=== PATIENT | male | born 1955 | race African-American/Black ===

== ENCOUNTER 2018-04-14 11:31 | Emergency (ER) | payer OTHER, SELFPAY ==
[2018-04-14 11:44] VITALS: BP 139/83; PULSE 78; RESP 20; TEMP 36.8; O2SAT 100; BMI 30.1
--- NOTE | 2018-04-14 13:11 | ED.MALEGU ---
HPI - Male Genitourinary <KIKI Pretty - Last Filed: 04/14/18 22:45> General Chief complaint: Urogenital-Male Stated complaint: post scrotal surgery-needs wick removed Time Seen by Provider: 04/14/18 12:44 Source: patient Mode of arrival: ambulatory Limitations: no limitations History of Present Illness HPI Narrative: Patient presents with chief complaint of needing a wick removed from an incision on his scrotum. States that he had a cyst removed a few days ago and the instructed him to follow up with his primary care provider or the emergency department to have the wick removed. Denies fevers, nausea vomiting or diarrhea. States he is taking antibiotics twice a day. Patient later remembers he had an abscess on his scrotum rather than a cyst. States overall he feels well. Related Data Home Medications Medication Instructions Recorded Confirmed famotidine [Pepcid] 1 tab PO PRN PRN 04/14/18 04/14/18 polyethylene glycol 3350 [Miralax] 1 dose PO PRN PRN 04/14/18 04/14/18 sulfamethoxazole-trimethoprim 1 tab PO BID 04/14/18 04/14/18 tramadol 50 mg PO Q6H PRN 04/14/18 04/14/18 Review of Systems <KIKI Pretty - Last Filed: 04/14/18 22:45> Review of Systems GENERAL: Denies chills, fatigue, malaise, fever, sweats. HEENT: Denies sinus pain, ear pain, sore throat, difficulty swallowing, dizziness. RESPIRATORY: Denies dyspnea, cough, wheezing, hemoptysis, sputum. CARDIOVASCULAR: Denies chest pain, palpitations, orthopnea, edema, GASTROINTESTINAL: Denies nausea, vomiting, abdominal pain, diarrhea, constipation, melena. : See HPI MUSCULOSKELETAL: denies weakness, joint pain, or bony pain SKIN: Denies rash, skin lesions, or other NEUROLOGIC: Denies weakness, headache, numbness, change in speech, confusion, seizures, incoordination. PSYCHIATRIC: No concerning psychosocial issues. 12 point review of systems is negative except for those stated above Exam <KIKI Pretty - Last Filed: 04/14/18 22:45> Narrative Exam Narrative: GENERAL: This is a well-nourished, well-developed patient, lying in bed HEAD: Atraumatic. Normocephalic. No temporal or scalp tenderness. EYES: Pupils equal round and reactive. Extraocular motions intact. No scleral icterus. No injection or drainage. ENT: Nose without bleeding, purulent drainage or septal hematoma. Throat without erythema, tonsillar hypertrophy or exudate. Uvula midline. Airway patent. NECK: Trachea midline. No JVD or lymphadenopathy. Supple, nontender, no meningeal signs. CARDIOVASCULAR: Regular rate and rhythm without murmurs, gallops, or rubs. RESPIRATORY: Clear to auscultation. Breath sounds equal bilaterally. No wheezes, rales, or rhonchi. GASTROINTESTINAL: Abdomen soft, non-tender, nondistended. No hepato-splenomegaly, or palpable masses. No guarding. EXTREMITIES: No clubbing, cyanosis, or edema. No joint tenderness, effusion, or edema noted. BACK: Nontender without deformity or crepitance. No flank tenderness. NEURO: AOx3. SKIN: Incision and drainage wound noted on left side of scrotum. Approximately 4 cm of packing was removed. No drainage noted, no erythema no swelling noted. Initial Vital Signs Initial Vital Signs: Vital Signs Temperature 98.2 F 04/14/18 11:44 Pulse Rate 78 04/14/18 11:44 Respiratory Rate 20 04/14/18 11:44 Blood Pressure 139/83 H 04/14/18 11:44 Pulse Oximetry 100 04/14/18 11:44 <David Mejia DO - Last Filed: 04/15/18 07:21> Initial Vital Signs Initial Vital Signs: Vital Signs Temperature 98.2 F 04/14/18 11:44 Pulse Rate 78 04/14/18 11:44 Respiratory Rate 20 04/14/18 11:44 Blood Pressure 139/83 H 04/14/18 11:44 Pulse Oximetry 100 04/14/18 11:44 Course <KIKI Pretty - Last Filed: 04/14/18 22:45> Additional Information: Patient presented for having wick removed from incision and drainage site on scrotum. Records were obtained from [facility] emergency department. Patient's urine sample sent. The packing was removed with Mindy STANTON as pinner printed circuit boards. Discussed monitoring for signs and symptoms of worsening infection, continue taking antibiotics as discussed. Orders Ordered: ED Orders 04/14/18 13:09 Urinalysis and Microscopic Stat Vital Signs - 8 hr 04/14/18 11:44 Temperature 98.2 F Pulse Rate 78 Respiratory Rate 20 Blood Pressure 139/83 H Pulse Oximetry 100 <David Mejia DO - Last Filed: 04/15/18 07:21> Orders Ordered: ED Orders 04/14/18 13:09 Urinalysis and Microscopic Stat Vital Signs - 8 hr 04/14/18 11:44 Temperature 98.2 F Pulse Rate 78 Respiratory Rate 20 Blood Pressure 139/83 H Pulse Oximetry 100 MDM - Male Genitourinary <ELHAM Pretty-BC - Last Filed: 04/14/18 22:45> Lab Data Lab Results 04/14/18 Range/Units 13:10 Urine Color Yellow Urine Appearance Clear Urine pH 7.0 (4.5-8.0) Ur Specific [place] 1.020 (1.000-1.035) Urine Protein Negative (Negative) Urine Glucose (UA) Negative (Normal) g/dL Urine Ketones Negative (NEGATIVE) Urine Occult Blood Trace-intact (Negative) Urine Nitrate Negative (Negative) Urine Bilirubin Negative (NEGATIVE) Urine Urobilinogen 0.2 (0.2) E.U./dL Ur Leukocyte Esterase Negative (NEGATIVE) Urine RBC 1-5/hpf (0-5/HPF) Urine WBC 0-1/hpf (0-5/HPF) Ur Squamous Epith Cells 0-1 /hpf Urine Bacteria None seen (None) Ur Culture Indicated? Cult not indicated Micro UA Comment Not Reportable MDM Narrative Medical decision making narrative: Patient presents for wound management. Packing was removed as discussed. Patient has no signs and symptoms of further infection, is afebrile and has no pain. The sinus tract in to keep taking his antibiotics as directed by the other emergency department. Discussed follow-up if worsening or no improvement including discharge, fevers, acute concerns. Patient had no questions or concerns upon discharge. <David Mejia DO - Last Filed: 04/15/18 07:21> Lab Data Lab Results 04/14/18 Range/Units 13:10 Urine Color Yellow Urine Appearance Clear Urine pH 7.0 (4.5-8.0) Ur Specific [place] 1.020 (1.000-1.035) Urine Protein Negative (Negative) Urine Glucose (UA) Negative (Normal) g/dL Urine Ketones Negative (NEGATIVE) Urine Occult Blood Trace-intact (Negative) Urine Nitrate Negative (Negative) Urine Bilirubin Negative (NEGATIVE) Urine Urobilinogen 0.2 (0.2) E.U./dL Ur Leukocyte Esterase Negative (NEGATIVE) Urine RBC 1-5/hpf (0-5/HPF) Urine WBC 0-1/hpf (0-5/HPF) Ur Squamous Epith Cells 0-1 /hpf Urine Bacteria None seen (None) Ur Culture Indicated? Cult not indicated Micro UA Comment Not Reportable Discharge Plan Departure Patient Disposition: Home, Self-Care Clinical Impression: Abscess Discharge Date/Time: 04/14/18 13:57 Interventions: ED Discharge Assessment Last Done: 04/14/18 13:53 Instructions: DI for Incision and Drainage of a Skin Abscess Activity Restrictions/Additional Instructions: Today I removed the packing from your abscess. Monitor for fever, spreading abscess, redness and drainage. Follow up with primary care if worsening or new symptoms. Keep taking the antibiotic as given to at the other emergency department. Prescriptions: No Action sulfamethoxazole-trimethoprim 800-160 mg tablet 1 tab PO BID RF: 0 tramadol 50 mg tablet 50 mg PO Q6H PRN (Reason: Pain, Moderate) RF: 0 polyethylene glycol 3350 [Miralax] 17 gram Powder In Packet 1 dose PO PRN PRN (Reason: Constipation) RF: 0 famotidine [Pepcid] 20 mg Tablet 1 tab PO PRN PRN (Reason: Heartburn) RF: 0 Stand Alone Forms: Against Medical Advice <David Mejia DO - Last Filed: 04/15/18 07:21> Cosign ED Attending Martature Attestation: I was available for consultation during this patient's emergency department encounter
[2018-04-14 13:22] LABS: Bacteria Urine None Seen
[2018-04-14 13:25] LABS: Appearance Urine UA CLEAR; Bilirubin Urine UA NEGATIVE (NEGATIVE); Color Urine UA YELLOW; Glucose Urine UA NEGATIVE (Normal); Ketones Urine UA NEGATIVE (NEGATIVE); Leukocyte Esterase Urine UA NEGATIVE (NEGATIVE); Nitrite Urine UA Negative (Negative); Occult Blood Urine UA TRACE-INTACT (Negative); Protein Urine UA NEGATIVE (Negative); Urobilinogen Urine UA 0.2 E.U./dL (0.2)
[2018-04-14 13:33] LABS: Culture Indicated Urine Cult Not Indicated; RBC Urine 1-5/HPF (0-5/HPF); Squamous Epithelial Cell Urine 0-1 /HPF; WBC Urine 0-1/HPF (0-5/HPF)
[2018-04-14 13:49] VITALS: BP 136/88; PULSE 72; RESP 17; O2SAT 100
--- NOTE | 2018-04-14 22:45 | ED_ITS ---
HPI - Male Genitourinary <KIKI Pretty - Last Filed: 04/14/18 22:45> General Chief complaint: Urogenital-Male Stated complaint: post scrotal surgery-needs wick removed Time Seen by Provider: 04/14/18 12:44 Source: patient Mode of arrival: ambulatory Limitations: no limitations History of Present Illness HPI Narrative: Patient presents with chief complaint of needing a wick removed from an incision on his scrotum. States that he had a cyst removed a few days ago and the instructed him to follow up with his primary care provider or the emergency department to have the wick removed. Denies fevers, nausea vomiting or diarrhea. States he is taking antibiotics twice a day. Patient later remembers he had an abscess on his scrotum rather than a cyst. States overall he feels well. Related Data Home Medications Medication Instructions Recorded Confirmed famotidine [Pepcid] 1 tab PO PRN PRN 04/14/18 04/14/18 polyethylene glycol 3350 [Miralax] 1 dose PO PRN PRN 04/14/18 04/14/18 sulfamethoxazole-trimethoprim 1 tab PO BID 04/14/18 04/14/18 tramadol 50 mg PO Q6H PRN 04/14/18 04/14/18 Review of Systems <KIKI Pretty - Last Filed: 04/14/18 22:45> Review of Systems GENERAL: Denies chills, fatigue, malaise, fever, sweats. HEENT: Denies sinus pain, ear pain, sore throat, difficulty swallowing, dizziness. RESPIRATORY: Denies dyspnea, cough, wheezing, hemoptysis, sputum. CARDIOVASCULAR: Denies chest pain, palpitations, orthopnea, edema, GASTROINTESTINAL: Denies nausea, vomiting, abdominal pain, diarrhea, constipation, melena. : See HPI MUSCULOSKELETAL: denies weakness, joint pain, or bony pain SKIN: Denies rash, skin lesions, or other NEUROLOGIC: Denies weakness, headache, numbness, change in speech, confusion, seizures, incoordination. PSYCHIATRIC: No concerning psychosocial issues. 12 point review of systems is negative except for those stated above Exam <KIKI Pretty - Last Filed: 04/14/18 22:45> Narrative Exam Narrative: GENERAL: This is a well-nourished, well-developed patient, lying in bed HEAD: Atraumatic. Normocephalic. No temporal or scalp tenderness. EYES: Pupils equal round and reactive. Extraocular motions intact. No scleral icterus. No injection or drainage. ENT: Nose without bleeding, purulent drainage or septal hematoma. Throat without erythema, tonsillar hypertrophy or exudate. Uvula midline. Airway patent. NECK: Trachea midline. No JVD or lymphadenopathy. Supple, nontender, no meningeal signs. CARDIOVASCULAR: Regular rate and rhythm without murmurs, gallops, or rubs. RESPIRATORY: Clear to auscultation. Breath sounds equal bilaterally. No wheezes , rales, or rhonchi. GASTROINTESTINAL: Abdomen soft, non-tender, nondistended. No hepato-splenomegaly , or palpable masses. No guarding. EXTREMITIES: No clubbing, cyanosis, or edema. No joint tenderness, effusion, or edema noted. BACK: Nontender without deformity or crepitance. No flank tenderness. NEURO: AOx3. SKIN: Incision and drainage wound noted on left side of scrotum. Approximately 4 cm of packing was removed. No drainage noted, no erythema no swelling noted. Initial Vital Signs Initial Vital Signs: Vital Signs Temperature 98.2 F 04/14/18 11:44 Pulse Rate 78 04/14/18 11:44 Respiratory Rate 20 04/14/18 11:44 Blood Pressure 139/83 H 04/14/18 11:44 Pulse Oximetry 100 04/14/18 11:44 <David Mejia DO - Last Filed: 04/15/18 07:21> Initial Vital Signs Initial Vital Signs: Vital Signs Temperature 98.2 F 04/14/18 11:44 Pulse Rate 78 04/14/18 11:44 Respiratory Rate 20 04/14/18 11:44 Blood Pressure 139/83 H 04/14/18 11:44 Pulse Oximetry 100 04/14/18 11:44 Course <KIKI Pretty - Last Filed: 04/14/18 22:45> Additional Information: Patient presented for having wick removed from incision and drainage site on scrotum. Records were obtained from [facility] emergency department. Patient's urine sample sent. The packing was removed with Mindy STANTON as skilled nursing professional. Discussed monitoring for signs and symptoms of worsening infection, continue taking antibiotics as discussed. Orders Ordered: ED Orders 04/14/18 13:09 Urinalysis and Microscopic Stat Vital Signs - 8 hr 04/14/18 11:44 Temperature 98.2 F Pulse Rate 78 Respiratory Rate 20 Blood Pressure 139/83 H Pulse Oximetry 100 <David Mejia DO - Last Filed: 04/15/18 07:21> Orders Ordered: ED Orders 04/14/18 13:09 Urinalysis and Microscopic Stat Vital Signs - 8 hr 04/14/18 11:44 Temperature 98.2 F Pulse Rate 78 Respiratory Rate 20 Blood Pressure 139/83 H Pulse Oximetry 100 MDM - Male Genitourinary <ELHAM Pretty-BC - Last Filed: 04/14/18 22:45> Lab Data Lab Results 04/14/18 Range/Units 13:10 Urine Color Yellow Urine Appearance Clear Urine pH 7.0 (4.5-8.0) Ur Specific [place] 1.020 (1.000-1.035) Urine Protein Negative (Negative) Urine Glucose (UA) Negative (Normal) g/dL Urine Ketones Negative (NEGATIVE) Urine Occult Blood Trace-intact (Negative) Urine Nitrate Negative (Negative) Urine Bilirubin Negative (NEGATIVE) Urine Urobilinogen 0.2 (0.2) E.U./dL Ur Leukocyte Esterase Negative (NEGATIVE) Urine RBC 1-5/hpf (0-5/HPF) Urine WBC 0-1/hpf (0-5/HPF) Ur Squamous Epith Cells 0-1 /hpf Urine Bacteria None seen (None) Ur Culture Indicated? Cult not indicated Micro UA Comment Not Reportable MDM Narrative Medical decision making narrative: Patient presents for wound management. Packing was removed as discussed. Patient has no signs and symptoms of further infection, is afebrile and has no pain. The sinus tract in to keep taking his antibiotics as directed by the other emergency department. Discussed follow-up if worsening or no improvement including discharge, fevers, acute concerns. Patient had no questions or concerns upon discharge. <David Mejia DO - Last Filed: 04/15/18 07:21> Lab Data Lab Results 04/14/18 Range/Units 13:10 Urine Color Yellow Urine Appearance Clear Urine pH 7.0 (4.5-8.0) Ur Specific [place] 1.020 (1.000-1.035) Urine Protein Negative (Negative) Urine Glucose (UA) Negative (Normal) g/dL Urine Ketones Negative (NEGATIVE) Urine Occult Blood Trace-intact (Negative) Urine Nitrate Negative (Negative) Urine Bilirubin Negative (NEGATIVE) Urine Urobilinogen 0.2 (0.2) E.U./dL Ur Leukocyte Esterase Negative (NEGATIVE) Urine RBC 1-5/hpf (0-5/HPF) Urine WBC 0-1/hpf (0-5/HPF) Ur Squamous Epith Cells 0-1 /hpf Urine Bacteria None seen (None) Ur Culture Indicated? Cult not indicated Micro UA Comment Not Reportable Discharge Plan Departure Patient Disposition: Home, Self-Care Clinical Impression: Abscess Discharge Date/Time: 04/14/18 13:57 Interventions: ED Discharge Assessment Last Done: 04/14/18 13:53 Instructions: DI for Incision and Drainage of a Skin Abscess Activity Restrictions/Additional Instructions: Today I removed the packing from your abscess. Monitor for fever, spreading abscess, redness and drainage. Follow up with primary care if worsening or new symptoms. Keep taking the antibiotic as given to at the other emergency department. Prescriptions: No Action sulfamethoxazole-trimethoprim 800-160 mg tablet 1 tab PO BID RF: 0 tramadol 50 mg tablet 50 mg PO Q6H PRN (Reason: Pain, Moderate) RF: 0 polyethylene glycol 3350 [Miralax] 17 gram Powder In Packet 1 dose PO PRN PRN (Reason: Constipation) RF: 0 famotidine [Pepcid] 20 mg Tablet 1 tab PO PRN PRN (Reason: Heartburn) RF: 0 Stand Alone Forms: Against Medical Advice <David Mejia DO - Last Filed: 04/15/18 07:21> Cosign ED Attending Martature Attestation: I was available for consultation during this patient's emergency department encounter
== END 2018-04-14 13:57 | disposition home or self-care (01) ==
PROVIDERS: Emergency Provider Nurse Practitioner Family
DX: Z48.00 Encounter for change or removal of nonsurgical wound dressing (principal)
CPT/HCPCS: 81001; 81003; 99283

== ENCOUNTER 2018-10-21 19:36 | Emergency (ER) | payer OTHER, SELFPAY ==
[2018-10-21 19:54] VITALS: BP 138/81; PULSE 78; RESP 15; TEMP 37.2; O2SAT 99; BMI 31.0
[2018-10-21 21:42] LABS: Alanine Aminotransferase 24 IU/L (21-72); Albumin 4.5 g/dL (3.5-5.0); Albumin Globulin Ratio 1.3 (1.0-2.8); Alkaline Phosphatase 71 U/L (38-126); Aspartate Aminotransferase 27 IU/L (17-59); Bilirubin Total 0.3 mg/dL (0.2-1.3); Blood Urea Nitrogen 14 mg/dL (9-20); Calcium 9.5 mg/dL (8.4-10.2); Carbon Dioxide 26 mmol/L (22-32); Chloride 105 mmol/L (98-107); Estimated Glomerular Filt Rate > 60.0 mL/min (>60); Globulin 3.5 g/dL (1.7-4.1); Glucose 92 mg/dL (80-110); HEMOLYSIS 16 (0-50); Lipase 73 U/L (23-300); Sodium 141 mmol/L (137-145)
[2018-10-21 21:48] LABS: Add Manual Diff / Slide Review NO; Basophils Absolute Auto 0 /uL (0-100); Basophils Percent Auto 0.9 % (0-2); Eosinophils Absolute Auto 200 /uL (0-450); Eosinophils Percent Auto 2.9 % (2-4); Hematocrit 38.7 % (41-53); Hemoglobin 12.9 g/dL (13.5-17.5); Lymphocytes Absolute Auto 2200 /uL (1100-4500); Lymphocytes Percent Auto 38.2 % (25-40); Mean Corpuscular HGB Conc 33.2 % (30-36); Mean Corpuscular Hemoglobin 31.6 PG (26-34); Mean Corpuscular Volume 95.2 fL (80-100); Monocytes Absolute Auto 400 /uL (0-900); Monocytes Percent Auto 7.5 % (3-14); Neutrophils Absolute Auto 2900 /uL (1500-7000); Neutrophils Percent Auto 50.5 % (50-75); Platelet Count 182 X10^3/uL (150-400); Red Blood Cell Count 4.06 X10^6/uL (4.5-5.9); White Blood Cell Count 5.7 X10^3/uL (4.5-11.0)
--- NOTE | 2018-10-21 22:27 | ED.ABDPAIN ---
HPI - Abdominal Pain General Chief Complaint: Abdominal Pain Stated Complaint: PAIN LEFT SIDE ABD PAIN Time Seen by Provider: 10/21/18 22:03 Source: patient and family Mode of arrival: ambulatory Limitations: no limitations History of Present Illness HPI narrative: 63-year-old male smoker with minimal medical history presents with a chief complaint of severe left flank pain that starts in his back and wraps around his groin. He has had this pain intermittently over the past year but it became significantly worse over the past few hours. He states that the pain is moving and is not made worse by any motion, though he cannot find a position of comfort. He denies any nausea, vomiting or diarrhea. He denies fever or chills. He denies any injury MD complaint: flank pain Onset (ago): year(s) Pain Consistency: intermittent Location: L flank Severity: moderate Quality: stabbing and sharp Migration to: LLQ Relieving factors: nothing Exacerbating factors: nothing Associated symptoms: denies other symptoms Related Data Home Medications Medication Instructions Recorded Confirmed famotidine [Pepcid] 1 tab PO PRN PRN 04/14/18 04/14/18 polyethylene glycol 3350 [Miralax] 1 dose PO PRN PRN 04/14/18 04/14/18 sulfamethoxazole-trimethoprim 1 tab PO BID 04/14/18 04/14/18 tramadol 50 mg PO Q6H PRN 04/14/18 04/14/18 Previous Rx's Medication Instructions Recorded hydrocodone-acetaminophen 1 tab PO Q4-6H PRN #10 tab 10/22/18 ketorolac 10 mg PO Q6H PRN #14 tab 10/22/18 ondansetron 4 mg PO TID-QID PRN #10 tab 10/22/18 Allergies Allergy/AdvReac Type Severity Reaction Status Date / Time No Known Drug Allergies Allergy Verified 10/21/18 19:54 Review of Systems Constitutional Denies chills, Denies fever(s), Denies lethargy and Denies weakness Eyes Denies change in vision, Denies eye discharge, Denies irritation and Denies loss of vision ENT Ears, Nose, Mouth, and Throat: Denies change in voice, Denies neck pain and Denies sore throat Cardiovascular Denies chest pain, Denies irregular heart rhythm, Denies lightheadedness, Denies palpitations, Denies dyspnea, Denies dyspnea on exertion and Denies orthopnea Respiratory Denies cough, Denies dyspnea, Denies dyspnea on exertion and Denies wheezing Gastrointestinal Gastrointestinal: Denies abdominal pain, Denies change in bowel habits, Denies diarrhea, Denies nausea and Denies vomiting Genitourinary Denies hematuria, Reports flank pain, Denies urinary incontinence and Denies urinary urgency Musculoskeletal Denies neck pain Integumentary/Breasts Denies pruritus, Denies erythema, Denies rash and Denies wounds Neurologic Denies confusion, Denies loss of vision and Denies weakness Psychiatric Denies anxiety, Denies confusion, Denies depression, Denies homicidal ideation and Denies suicidal ideation Endocrine Denies palpitations Hematologic/Lymphatic Denies easy bruising Allergic/Immunologic Denies wheezing PFSH Social History Smoking Status: Current some day smoker Social History Smoking Status: Current some day smoker Exam Narrative Exam Narrative: GENERAL: This is a well-nourished, well-developed patient, in mild distress. Rubbing his left flank HEAD: Atraumatic. Normocephalic. No temporal or scalp tenderness. EYES: Pupils equal round and reactive. Extraocular motions intact. No scleral icterus. No injection or drainage. ENT: Nose without bleeding, purulent drainage or septal hematoma. Throat without erythema, tonsillar hypertrophy or exudate. Uvula midline. Airway patent. NECK: Trachea midline. No JVD or lymphadenopathy. Supple, nontender, no meningeal signs. CARDIOVASCULAR: Regular rate and rhythm without murmurs, gallops, or rubs. RESPIRATORY: Clear to auscultation. Breath sounds equal bilaterally. No wheezes, rales, or rhonchi. GASTROINTESTINAL: Abdomen soft, non-tender, nondistended. No hepato-splenomegaly, or palpable masses. No guarding. EXTREMITIES: No clubbing, cyanosis, or edema. No joint tenderness, effusion, or edema noted. BACK: Nontender without deformity or crepitance. No flank tenderness. NEURO: AOx3. SKIN: No rash or erythema. Initial Vital Signs Initial Vital Signs: Vital Signs Temperature 98.9 F 10/21/18 19:54 Pulse Rate 78 10/21/18 19:54 Respiratory Rate 15 10/21/18 19:54 Blood Pressure 138/81 10/21/18 19:54 Pulse Oximetry 99 10/21/18 19:54 Course Orders Ordered: Discontinued Medications Hydrocodone Bitart/Acetaminophen (Vicodin Prepack) 1 bottle MISC SEEINSTR ONE Stop: 10/22/18 01:13 Last Admin: 10/22/18 01:16 Dose: 1 bottle Ketorolac Tromethamine (Toradol) 15 mg IV NOW ONE Stop: 10/21/18 22:27 Last Admin: 10/21/18 22:42 Dose: 15 mg Reevaluation(s) Reevaluation #1: Patient notes significant improvement with the above-stated therapies and is wishing to be discharged Vital Signs - 8 hr 10/21/18 19:54 Temperature 98.9 F Pulse Rate 78 Respiratory Rate 15 Blood Pressure 138/81 Pulse Oximetry 99 MDM - Abdominal Pain Differential Diagnosis Differential diagnosis: Likely abdominal pain, calculus of kidney, constipation, diverticulitis, gastroenteritis, pancreatitis and small bowel obstruction Lab Data Result diagrams: 10/21/18 21:20 10/21/18 21:20 Lab Results 10/21/18 10/21/18 Range/Units 21:20 21:20 WBC 5.7 (4.5-11.0) X10^3/uL RBC 4.06 L (4.5-5.9) X10^6/uL Hgb 12.9 L (13.5-17.5) g/dL Hct 38.7 L (41-53) % MCV 95.2 (80-100) fL MCH 31.6 (26-34) PG MCHC 33.2 (30-36) % RDW 14.0 (11.6-14.8) % Plt Count 182 (150-400) X10^3/uL Neut % (Auto) 50.5 (50-75) % Lymph % (Auto) 38.2 (25-40) % [place] % (Auto) 7.5 (3-14) % Eos % (Auto) 2.9 (2-4) % Baso % (Auto) 0.9 (0-2) % Neut # (Auto) 2900 (2435-3325) /uL Lymph # (Auto) 2200 (2278-1961) /uL [place] # (Auto) 400 (0-900) /uL Eos # (Auto) 200 (0-450) /uL Baso # (Auto) 0 (0-100) /uL Sodium 141 (137-145) mmol/L Potassium 4.0 (3.4-5.1) mmol/L Chloride 105 (98-107) mmol/L Carbon Dioxide 26 (22-32) mmol/L BUN 14 (9-20) mg/dL Creatinine 1.00 (0.66-1.25) mg/dL Estimated GFR > 60.0 (>60) mL/min BUN/Creatinine Ratio 14.0 (6-22) Glucose 92 (80-110) mg/dL Calcium 9.5 (8.4-10.2) mg/dL Total Bilirubin 0.3 (0.2-1.3) mg/dL AST 27 (17-59) IU/L ALT 24 (21-72) IU/L Alkaline Phosphatase 71 (38-126) U/L Total Protein 8.0 (6.3-8.2) g/dL Albumin 4.5 (3.5-5.0) g/dL Globulin 3.5 (1.7-4.1) g/dL Albumin/Globulin Ratio 1.3 (1.0-2.8) Lipase 73 (23-300) U/L Point of care testing: Urine Dip Bedside Urine Glucose Negative Bedside Urine Bilirubin - Negative Bedside Urine Ketone - Negative Urine Specific [place] 1.025 Bedside Urine Occult Blood ++ Bedside Urine pH 6.0 Bedside Urine Protein - Negative Bedside Urine Urobilinogen - Negative Bedside Urine Nitrite - Negative Bedside Urine Leukocytes - Negative Esterase Imaging Data CT scan - abdomen: Radiologist's impression: [address] [address] [address] Scan Report Signed Patient: Crescencio Hoang R#: [id number] : 8Acct:[id number] Age/Sex: 63 / MDate of Service: 10/21/18 Loc: ED Accession Number: [id number] Procedure: CT kidney ureter bladder (KUB) Ordering Provider: Travis Basilio D.O. PROCEDURE: CT KIDNEY URETER BLADDER (KUB) INDICATIONS: Left flank pain, hematuria TECHNIQUE: Noncontrast 5 mm thick sections acquired from the diaphragms to the symphysis. 5 mm thick coronal and sagittal reformats were then performed. For radiation dose reduction, the following was used: automated exposure control, adjustment of mA and/or kV according to patient size. COMPARISON: None. FINDINGS: Image quality: Excellent. Lung bases: Lung bases are clear. Heart size is normal. Urinary system: Both kidneys are normal in size. No kidney stones. No hydronephrosis or perinephric fat stranding. Both ureters appear non-dilated throughout their expected courses. Bladder wall thickness is normal; no calcified bladder stones. Other solid organs: Liver is normal in size. Gallbladder is within normal limits. Pancreas is normal in contours. Spleen is normal in size. No adrenal nodules. Peritoneum and bowel: Unenhanced bowel loops demonstrate normal wall thickness and caliber. Normal appendix. No free fluid or air. Nodes and vessels: No retroperitoneal or mesenteric adenopathy by size criteria. Aorta and inferior vena cava are normal in caliber. Abdominal wall: No ventral hernias. Pelvis: No free pelvic fluid. No inguinal hernias or adenopathy. Bones: No suspicious bony lesions. No vertebral body compression fractures. IMPRESSION: 1. No evidence of urinary tract calcification nor obstruction. 2. Normal appendix. Dictated by: Ladi Pace M.D. on 10/22/2018 at 9:28 MDM Narrative Medical decision making narrative: Multiple etiologies for patient's symptoms considered including: [bowel obstruction, but thought less likely given lack of imaging findings. Shingles, thought less likely given no rash or reproduced pain. Kidney stone thought likely given hematuria, radiation, and unprovoked pain. Vascular abnormality thought less likely given lack of suggestive findings on CT (no IV contrast used as this is low on differential)] Patient's symptoms improved or duration of stay with above-stated therapies. Findings and discharge diagnosis discussed with patient/family followed by verbalization of understanding Return precautions discussed with patient/family whom verbalize understanding. Discharge Plan Departure Patient Disposition: Home Clinical Impression: Acute flank pain, Kidney calculi Discharge Date/Time: 10/22/18 01:16 Interventions: ED Discharge Assessment Last Done: 10/22/18 01:16 Instructions: DI for Kidney Stones Activity Restrictions/Additional Instructions: *You have been diagnosed with [ acute left flank pain, likely kidney stone versus renal colic ] *What to do: *Take medications as directed *Follow up with your primary care provider in 2-3 days, call for an appointment. Let them know you were seen in the Emergency Department and that we ask that you be seen in follow up *Return to ER if you should have any new, worsening or concerning symptoms Prescriptions: New hydrocodone-acetaminophen 5-325 mg tablet 1 tab PO Q4-6H PRN (Reason: pain) Qty: 10 RF: 0 ketorolac 10 mg tablet 10 mg PO Q6H PRN (Reason: pain) Qty: 14 RF: 0 ondansetron 4 mg tablet,disintegrating 4 mg PO TID-QID PRN (Reason: nausea and vomiting) Qty: 10 RF: 0 No Action sulfamethoxazole-trimethoprim 800-160 mg tablet 1 tab PO BID RF: 0 tramadol 50 mg tablet 50 mg PO Q6H PRN (Reason: Pain, Moderate) RF: 0 polyethylene glycol 3350 [Miralax] 17 gram Powder In Packet 1 dose PO PRN PRN (Reason: Constipation) RF: 0 famotidine [Pepcid] 20 mg Tablet 1 tab PO PRN PRN (Reason: Heartburn) RF: 0
[2018-10-21] MEDS: KETOROLAC 60 MG/2 ML VIAL 15 MG IV (22:42)
[2018-10-21 23:03] VITALS: BP 129/76; PULSE 65; RESP 16; O2SAT 98
[2018-10-22 00:16] VITALS: BP 123/68; PULSE 69; RESP 18; O2SAT 97
[2018-10-22] MEDS: HYDROCODONE/ACET 5/325 PREPACK 1 BOTTLE MISC (01:16)
--- NOTE | 2018-10-23 23:52 | ED_ITS ---
HPI - Abdominal Pain General Chief Complaint: Abdominal Pain Stated Complaint: PAIN LEFT SIDE ABD PAIN Time Seen by Provider: 10/21/18 22:03 Source: patient and family Mode of arrival: ambulatory Limitations: no limitations History of Present Illness HPI narrative: 63-year-old male smoker with minimal medical history presents with a chief complaint of severe left flank pain that starts in his back and wraps around his groin. He has had this pain intermittently over the past year but it became significantly worse over the past few hours. He states that the pain is moving and is not made worse by any motion, though he cannot find a position of comfort. He denies any nausea, vomiting or diarrhea. He denies fever or chills. He denies any injury MD complaint: flank pain Onset (ago): year(s) Pain Consistency: intermittent Location: L flank Severity: moderate Quality: stabbing and sharp Migration to: LLQ Relieving factors: nothing Exacerbating factors: nothing Associated symptoms: denies other symptoms Related Data Home Medications Medication Instructions Recorded Confirmed famotidine [Pepcid] 1 tab PO PRN PRN 04/14/18 04/14/18 polyethylene glycol 3350 [Miralax] 1 dose PO PRN PRN 04/14/18 04/14/18 sulfamethoxazole-trimethoprim 1 tab PO BID 04/14/18 04/14/18 tramadol 50 mg PO Q6H PRN 04/14/18 04/14/18 Previous Rx's Medication Instructions Recorded hydrocodone-acetaminophen 1 tab PO Q4-6H PRN #10 tab 10/22/18 ketorolac 10 mg PO Q6H PRN #14 tab 10/22/18 ondansetron 4 mg PO TID-QID PRN #10 tab 10/22/18 Allergies Allergy/AdvReac Type Severity Reaction Status Date / Time No Known Drug Allergies Allergy Verified 10/21/18 19:54 Review of Systems Constitutional Denies chills, Denies fever(s), Denies lethargy and Denies weakness Eyes Denies change in vision, Denies eye discharge, Denies irritation and Denies loss of vision ENT Ears, Nose, Mouth, and Throat: Denies change in voice, Denies neck pain and Denies sore throat Cardiovascular Denies chest pain, Denies irregular heart rhythm, Denies lightheadedness, Denies palpitations, Denies dyspnea, Denies dyspnea on exertion and Denies orthopnea Respiratory Denies cough, Denies dyspnea, Denies dyspnea on exertion and Denies wheezing Gastrointestinal Gastrointestinal: Denies abdominal pain, Denies change in bowel habits, Denies diarrhea, Denies nausea and Denies vomiting Genitourinary Denies hematuria, Reports flank pain, Denies urinary incontinence and Denies urinary urgency Musculoskeletal Denies neck pain Integumentary/Breasts Denies pruritus, Denies erythema, Denies rash and Denies wounds Neurologic Denies confusion, Denies loss of vision and Denies weakness Psychiatric Denies anxiety, Denies confusion, Denies depression, Denies homicidal ideation and Denies suicidal ideation Endocrine Denies palpitations Hematologic/Lymphatic Denies easy bruising Allergic/Immunologic Denies wheezing PFSH Social History Smoking Status: Current some day smoker Social History Smoking Status: Current some day smoker Exam Narrative Exam Narrative: GENERAL: This is a well-nourished, well-developed patient, in mild distress. Rubbing his left flank HEAD: Atraumatic. Normocephalic. No temporal or scalp tenderness. EYES: Pupils equal round and reactive. Extraocular motions intact. No scleral icterus. No injection or drainage. ENT: Nose without bleeding, purulent drainage or septal hematoma. Throat without erythema, tonsillar hypertrophy or exudate. Uvula midline. Airway patent. NECK: Trachea midline. No JVD or lymphadenopathy. Supple, nontender, no meningeal signs. CARDIOVASCULAR: Regular rate and rhythm without murmurs, gallops, or rubs. RESPIRATORY: Clear to auscultation. Breath sounds equal bilaterally. No wheezes , rales, or rhonchi. GASTROINTESTINAL: Abdomen soft, non-tender, nondistended. No hepato-splenomegaly , or palpable masses. No guarding. EXTREMITIES: No clubbing, cyanosis, or edema. No joint tenderness, effusion, or edema noted. BACK: Nontender without deformity or crepitance. No flank tenderness. NEURO: AOx3. SKIN: No rash or erythema. Initial Vital Signs Initial Vital Signs: Vital Signs Temperature 98.9 F 10/21/18 19:54 Pulse Rate 78 10/21/18 19:54 Respiratory Rate 15 10/21/18 19:54 Blood Pressure 138/81 10/21/18 19:54 Pulse Oximetry 99 10/21/18 19:54 Course Orders Ordered: Discontinued Medications Hydrocodone Bitart/Acetaminophen (Vicodin Prepack) 1 bottle MISC SEEINSTR ONE Stop: 10/22/18 01:13 Last Admin: 10/22/18 01:16 Dose: 1 bottle Ketorolac Tromethamine (Toradol) 15 mg IV NOW ONE Stop: 10/21/18 22:27 Last Admin: 10/21/18 22:42 Dose: 15 mg Reevaluation(s) Reevaluation #1: Patient notes significant improvement with the above-stated therapies and is wishing to be discharged Vital Signs - 8 hr 10/21/18 19:54 Temperature 98.9 F Pulse Rate 78 Respiratory Rate 15 Blood Pressure 138/81 Pulse Oximetry 99 MDM - Abdominal Pain Differential Diagnosis Differential diagnosis: Likely abdominal pain, calculus of kidney, constipation , diverticulitis, gastroenteritis, pancreatitis and small bowel obstruction Lab Data Result diagrams: 10/21/18 21:20 10/21/18 21:20 Lab Results 10/21/18 10/21/18 Range/Units 21:20 21:20 WBC 5.7 (4.5-11.0) X10^3/uL RBC 4.06 L (4.5-5.9) X10^6/uL Hgb 12.9 L (13.5-17.5) g/dL Hct 38.7 L (41-53) % MCV 95.2 (80-100) fL MCH 31.6 (26-34) PG MCHC 33.2 (30-36) % RDW 14.0 (11.6-14.8) % Plt Count 182 (150-400) X10^3/uL Neut % (Auto) 50.5 (50-75) % Lymph % (Auto) 38.2 (25-40) % [place] % (Auto) 7.5 (3-14) % Eos % (Auto) 2.9 (2-4) % Baso % (Auto) 0.9 (0-2) % Neut # (Auto) 2900 (7175-4352) /uL Lymph # (Auto) 2200 (7296-0654) /uL [place] # (Auto) 400 (0-900) /uL Eos # (Auto) 200 (0-450) /uL Baso # (Auto) 0 (0-100) /uL Sodium 141 (137-145) mmol/L Potassium 4.0 (3.4-5.1) mmol/L Chloride 105 (98-107) mmol/L Carbon Dioxide 26 (22-32) mmol/L BUN 14 (9-20) mg/dL Creatinine 1.00 (0.66-1.25) mg/dL Estimated GFR > 60.0 (>60) mL/min BUN/Creatinine Ratio 14.0 (6-22) Glucose 92 (80-110) mg/dL Calcium 9.5 (8.4-10.2) mg/dL Total Bilirubin 0.3 (0.2-1.3) mg/dL AST 27 (17-59) IU/L ALT 24 (21-72) IU/L Alkaline Phosphatase 71 (38-126) U/L Total Protein 8.0 (6.3-8.2) g/dL Albumin 4.5 (3.5-5.0) g/dL Globulin 3.5 (1.7-4.1) g/dL Albumin/Globulin Ratio 1.3 (1.0-2.8) Lipase 73 (23-300) U/L Point of care testing: Urine Dip Bedside Urine Glucose Negative Bedside Urine Bilirubin - Negative Bedside Urine Ketone - Negative Urine Specific [place] 1.025 Bedside Urine Occult Blood ++ Bedside Urine pH 6.0 Bedside Urine Protein - Negative Bedside Urine Urobilinogen - Negative Bedside Urine Nitrite - Negative Bedside Urine Leukocytes - Negative Esterase Imaging Data CT scan - abdomen: Radiologist's impression: [address] [address] [address] Scan Report Signed Patient: Crescencio Hoang R#: [id number] : 8Acct:[id number] Age/Sex: 63 / MDate of Service: 10/21/18 Loc: ED Accession Number: [id number] Procedure: CT kidney ureter bladder (KUB) Ordering Provider: Travis Basilio D.O. PROCEDURE: CT KIDNEY URETER BLADDER (KUB) INDICATIONS: Left flank pain, hematuria TECHNIQUE: Noncontrast 5 mm thick sections acquired from the diaphragms to the symphysis. 5 mm thick coronal and sagittal reformats were then performed. For radiation dose reduction, the following was used: automated exposure control, adjustment of mA and/or kV according to patient size. COMPARISON: None. FINDINGS: Image quality: Excellent. Lung bases: Lung bases are clear. Heart size is normal. Urinary system: Both kidneys are normal in size. No kidney stones. No hydronephrosis or perinephric fat stranding. Both ureters appear non-dilated throughout their expected courses. Bladder wall thickness is normal; no calcified bladder stones. Other solid organs: Liver is normal in size. Gallbladder is within normal limits. Pancreas is normal in contours. Spleen is normal in size. No adrenal nodules. Peritoneum and bowel: Unenhanced bowel loops demonstrate normal wall thickness and caliber. Normal appendix. No free fluid or air. Nodes and vessels: No retroperitoneal or mesenteric adenopathy by size criteria. Aorta and inferior vena cava are normal in caliber. Abdominal wall: No ventral hernias. Pelvis: No free pelvic fluid. No inguinal hernias or adenopathy. Bones: No suspicious bony lesions. No vertebral body compression fractures. IMPRESSION: 1. No evidence of urinary tract calcification nor obstruction. 2. Normal appendix. Dictated by: Ladi Pace M.D. on 10/22/2018 at 9:28 MDM Narrative Medical decision making narrative: Multiple etiologies for patient's symptoms considered including: [bowel obstruction, but thought less likely given lack of imaging findings. Shingles, thought less likely given no rash or reproduced pain. Kidney stone thought likely given hematuria, radiation, and unprovoked pain. Vascular abnormality thought less likely given lack of suggestive findings on CT (no IV contrast used as this is low on differential)] Patient's symptoms improved or duration of stay with above-stated therapies. Findings and discharge diagnosis discussed with patient/family followed by verbalization of understanding Return precautions discussed with patient/family whom verbalize understanding. Discharge Plan Departure Patient Disposition: Home Clinical Impression: Acute flank pain, Kidney calculi Discharge Date/Time: 10/22/18 01:16 Interventions: ED Discharge Assessment Last Done: 10/22/18 01:16 Instructions: DI for Kidney Stones Activity Restrictions/Additional Instructions: *You have been diagnosed with [ acute left flank pain, likely kidney stone versus renal colic ] *What to do: *Take medications as directed *Follow up with your primary care provider in 2-3 days, call for an appointment. Let them know you were seen in the Emergency Department and that we ask that you be seen in follow up *Return to ER if you should have any new, worsening or concerning symptoms Prescriptions: New hydrocodone-acetaminophen 5-325 mg tablet 1 tab PO Q4-6H PRN (Reason: pain) Qty: 10 RF: 0 ketorolac 10 mg tablet 10 mg PO Q6H PRN (Reason: pain) Qty: 14 RF: 0 ondansetron 4 mg tablet,disintegrating 4 mg PO TID-QID PRN (Reason: nausea and vomiting) Qty: 10 RF: 0 No Action sulfamethoxazole-trimethoprim 800-160 mg tablet 1 tab PO BID RF: 0 tramadol 50 mg tablet 50 mg PO Q6H PRN (Reason: Pain, Moderate) RF: 0 polyethylene glycol 3350 [Miralax] 17 gram Powder In Packet 1 dose PO PRN PRN (Reason: Constipation) RF: 0 famotidine [Pepcid] 20 mg Tablet 1 tab PO PRN PRN (Reason: Heartburn) RF: 0
== END 2018-10-22 01:16 | disposition home or self-care (01) ==
PROVIDERS: Emergency Provider Emergency Medicine
DX: N20.0 Calculus of kidney (principal); R10.9 Unspecified abdominal pain
CPT/HCPCS: 36591; 74176; 80053; 81003; 83690; 85025; 96374; 99282; 99284; J1885

== ENCOUNTER 2023-10-07 20:16 | Inpatient (IN) | payer OTHER, SELFPAY ==
[2023-10-07] VITALS (8 sets, daily range): BP systolic 112–149; BP diastolic 67–95; PULSE 73–80; RESP 12–18; TEMP 36.8–37.2; O2SAT 97–100; BMI 26.6; BMI 26.9
--- NOTE | 2023-10-07 20:55 | ED.FALL ---
HPI - Fall General Chief Complaint: Fall Stated Complaint: fall, unable to move on his own Time Seen by Provider: 10/07/23 20:39 Source: patient and family Mode of arrival: Wheelchair History of Present Illness HPI Narrative: Patient is a 54-year-old male. Has a diagnosis of Parkinson's disease but has not taking any of his medicines in the past 2 years. He is here with family. His daughter went over to his house today after he did not answer the phone and found him lying on the ground. The patient states he had been laying on the ground for approximately 14 hours however the last time he had been seen was over 24 hours ago. He states he was trying to get up from sitting on an [place] when he fell over after losing his balance. He did not think that he hit his head. He did not think that he lost consciousness. He states he was in a position where he just could not get up. He currently only has generalized body aches and discomfort on his right side specifically his right buttock region. He has been on Parkinson's medicines in the past but stopped taking them approximately 2 years ago. His family was unaware this. He does not have a primary care doctor. He takes no other medications. At baseline he is able to get around the house but has a lot of difficulty doing this. He states that he probably should use a walker but does not. His family agrees that he has had significant mobility issues. Related Data Home Medications Medication Instructions Recorded Confirmed famotidine 20 mg tablet (Pepcid) 1 tab PO PRN PRN Heartburn 04/14/18 04/14/18 polyethylene glycol 3350 17 gram 1 dose PO PRN PRN Constipation 04/14/18 04/14/18 oral powder packet (Miralax) sulfamethoxazole 800 1 tab PO BID 04/14/18 04/14/18 mg-trimethoprim 160 mg tablet tramadol 50 mg tablet 50 mg PO Q6H PRN Pain, Moderate 04/14/18 04/14/18 Previous Rx's Medication Instructions Recorded hydrocodone 5 mg-acetaminophen 325 1 tab PO Q4-6H PRN pain #10 tabs 10/22/18 mg tablet ketorolac 10 mg tablet 10 mg PO Q6H PRN pain #14 tabs 10/22/18 ondansetron 4 mg disintegrating 4 mg PO TID-QID PRN nausea and 10/22/18 tablet vomiting #10 tabs Allergies Allergy/AdvReac Type Severity Reaction Status Date / Time No Known Drug Allergies Allergy Verified 10/07/23 20:49 Review of Systems Review of Systems ROS Unobtainable: All systems reviewed & are unremarkable except as noted in HPI and below Patient History Social History Smoking Status: Current some day smoker Smoking Status: Current some day smoker alcohol intake frequency: a few times a week Substance Use Type: marijuana Exam Initial Vital Signs Initial Vital Signs: Vital Signs Temperature 98.9 F 10/07/23 20:41 Pulse Rate 80 10/07/23 20:41 Respiratory Rate 18 10/07/23 20:41 Blood Pressure 149/95 H 10/07/23 20:41 Pulse Oximetry 99 10/07/23 20:41 Oxygen Delivery Method Room Air 10/07/23 20:41 HENMT Head: normal to inspection and normocephalic Mouth: No moist mucous membranes (Dry mucous membranes) Resp Effort & Inspection: normal respiratory effort Auscultation: clear to auscultation bilaterally Cardio Rate: regular rate Rhythm: regular rhythm Back/Spine/Pelvis Cervical Spine: No cervical spinal tenderness Neuro General: patient alert, patient awake and moves all extremities Cognition: normal cognition Speech: speech normal Extrem General: capillary refill normal Other: Swelling to the right hand in the right forearm. There was redness of the skin but no specific skin breakdown. He has discomfort over his forearm but is compartments are soft. He is similar appearance to his posterior right hip. Tender to this area. Has minimal discomfort with passive movement of the right hip in the right knee. Scores GCS [place] coma scale eye opening: Spontaneous [place] coma scale verbal response: Orientated [place] coma scale motor response: Obey commands [place] coma scale total score: 15 Nexus Score for C-Spine Focal Neurologic deficit present: No Midline spinal tenderness present: No Altered level of conciousness present: No Intoxication present: No Distracting Injury Present: No Nexus Criteria for C-spine: 0 Course Orders Ordered: ED Orders 10/07/23 20:41 EKG-12 Lead Stat 10/07/23 20:56 CT head/brain wo con Stat 10/07/23 21:00 Complete Blood Count AUTO DIFF Stat Comprehensive Metabolic Panel Stat Creatine Kinase Stat ETOH [Ethanol (ETOH)] Stat Lipase Stat Sodium Chloride (Normal Saline 0.9%) 1,000 mls @ 150 mls/hr IV CONT ESCOBAR Last Admin: 10/07/23 22:17 Dose: 150 mls/hr Documented By: JESSICA Discontinued Medications Sodium Chloride (Normal Saline 0.9%) 1,000 mls @ 1,000 mls/hr IV BOLUS ONE Stop: 10/07/23 21:39 Last Infusion: 10/07/23 22:09 Dose: Infused Documented By: Infusion: 10/07/23 21:15 Dose: 1,000 mls/hr Documented By: Infusion: 10/07/23 21:03 Dose: 0 mls/hr Documented By: Admin: 10/07/23 21:02 Dose: 1,000 mls/hr Documented By: SOFI Vital Signs Vital signs: Vital Signs - 8 hr 10/07/23 20:41 10/07/23 21:12 10/07/23 21:15 Temperature 98.9 F Pulse Rate 80 80 79 Respiratory Rate 18 14 Blood Pressure 149/95 H Pulse Oximetry 99 97 98 Oxygen Delivery Method Room Air 10/07/23 21:15 10/07/23 21:30 10/07/23 21:30 Temperature Pulse Rate 73 Respiratory Rate 16 Blood Pressure 132/80 112/67 Pulse Oximetry 100 Oxygen Delivery Method Room Air 10/07/23 22:00 10/07/23 22:00 10/07/23 22:30 Temperature Pulse Rate 73 73 Respiratory Rate 14 16 Blood Pressure 114/70 Pulse Oximetry 100 98 Oxygen Delivery Method Room Air MDM - Fall Lab Data Attestation: I reviewed the patient's lab results. 10/07/23 21:00 10/07/23 21:00 Labs: Lab Results 10/07/23 Range/Units 21:00 WBC 10.1 (4.5-11.0) X10^3/uL RBC 4.56 (4.5-5.9) X10^6/uL Hgb 14.2 (13.5-17.5) g/dL Hct 42.9 (41-53) % MCV 94.1 (80-100) fL MCH 31.2 (26-34) PG MCHC 33.2 (30-36) % RDW 13.8 (11.6-14.8) % Plt Count 131 L (150-400) X10^3/uL Neut % (Auto) 85.8 H (50-75) % Lymph % (Auto) 7.5 L (25-40) % [place] % (Auto) 6.1 (3-14) % Eos % (Auto) 0.0 L (2-4) % Baso % (Auto) 0.6 (0-2) % Neut # (Auto) 8600 H (5225-9356) /uL Lymph # (Auto) 800 L (4660-6376) /uL [place] # (Auto) 600 (0-900) /uL Eos # (Auto) 0 (0-450) /uL Baso # (Auto) 100 (0-100) /uL Sodium 138 (137-145) mmol/L Potassium 4.4 (3.4-5.1) mmol/L Chloride 100 (98-107) mmol/L Carbon Dioxide 27 (22-32) mmol/L BUN 35 H (9-20) mg/dL Creatinine 1.00 (0.66-1.25) mg/dL Estimated GFR > 60 (>60) mL/min BUN/Creatinine Ratio 35.0 H (6-22) Glucose 90 (70-100) mg/dL Calcium 10.0 (8.4-10.2) mg/dL Total Bilirubin 1.3 (0.2-1.3) mg/dL AST 1038 H (17-59) IU/L ALT 45 (<50) IU/L Alkaline Phosphatase 63 (38-126) U/L Total Creatine Kinase 42053 H (55-170) U/L Total Protein 9.3 H (6.3-8.2) g/dL Albumin 4.7 (3.5-5.0) g/dL Globulin 4.6 H (1.7-4.1) g/dL Albumin/Globulin Ratio 1.0 (1.0-2.8) Lipase 21 L (23-300) U/L Imaging Data CT scan - head: Radiologist's Impression: PROCEDURE: CT HEAD/BRAIN WO CON INDICATIONS: fall and weakness TECHNIQUE: Noncontrast 4.5 mm thick angled axial sections acquired from the foramen magnum to the vertex, with coronal and sagittal reformats. For radiation dose reduction, the following was used: automated exposure control, adjustment of mA and/or kV according to patient size. COMPARISON: None. FINDINGS: Image quality: Diagnostic. CSF spaces: Basal cisterns are patent. No extra-axial fluid collections. Ventricles are normal in size and shape. Brain: No midline shift. No intracranial masses or hemorrhage. [place]-white matter interface is normal. Skull and face: Calvarium and visualized facial bones are intact, without suspicious lesions. Sinuses: Visualized sinuses and mastoids are clear. IMPRESSION: No acute intracranial pathology. ECG Data Attestation: I personally reviewed and interpreted this ECG as follows: Interpretation: Sinus rhythm Ventricular rate is 78 Left axis deviation LVH Normal QTC No ST T wave changes MDM Narrative Medical decision making narrative: He is alert and oriented x3. His CK is elevated. Kidney function is unremarkable. This is consistent with his presentation. He has discomfort to his right forearm and right hand with swelling but is compartments are soft. Low suspicion for compartment syndrome. The skin is red over this area but there was no specific skin breakdown. Also has discomfort over the posterior right hip. He states he was lying on his right hip and on his right arm potentially for greater than 12 hours. Fluids are administered. Discussed the case with Dr. Ruvalcaba will admit for further evaluation and treatment. Discussed the need for admission with the patient and family. They expressed understanding and agreement. Discharge Plan Departure Patient Disposition: Admitted As Inpatient Clinical Impression: Rhabdomyolysis, Parkinson's disease
[2023-10-07] MEDS: SODIUM CHLORIDE 0.9% 1,000 ML 1000 ML IV (21:02)
[2023-10-07 21:15] LABS: Add Manual Diff / Slide Review NO; Basophils Absolute Auto 100 /uL (0-100); Basophils Percent Auto 0.6 % (0-2); Eosinophils Absolute Auto 0 /uL (0-450); Hematocrit 42.9 % (41-53); Hemoglobin 14.2 g/dL (13.5-17.5); Lymphocytes Absolute Auto 800 /uL (1100-4500); Lymphocytes Percent Auto 7.5 % (25-40); Mean Corpuscular HGB Conc 33.2 % (30-36); Mean Corpuscular Hemoglobin 31.2 PG (26-34); Mean Corpuscular Volume 94.1 fL (80-100); Monocytes Absolute Auto 600 /uL (0-900); Monocytes Percent Auto 6.1 % (3-14); Neutrophils Absolute Auto 8600 /uL (1500-7000); Neutrophils Percent Auto 85.8 % (50-75); Platelet Count 131 X10^3/uL (150-400); Red Blood Cell Count 4.56 X10^6/uL (4.5-5.9); Red Cell Distribution Width 13.8 % (11.6-14.8); White Blood Cell Count 10.1 X10^3/uL (4.5-11.0)
[2023-10-07 21:27] LABS: Alanine Aminotransferase 45 IU/L (<50); Albumin 4.7 g/dL (3.5-5.0); Alkaline Phosphatase 63 U/L (38-126); Bilirubin Total 1.3 mg/dL (0.2-1.3); Blood Urea Nitrogen 35 mg/dL (9-20); Carbon Dioxide 27 mmol/L (22-32); Chloride 100 mmol/L (98-107); Estimated Glomerular Filt Rate > 60 mL/min (>60); Globulin 4.6 g/dL (1.7-4.1); Glucose 90 mg/dL (70-100); HEMOLYSIS 47 (0-50); Lipase 21 U/L (23-300); Potassium 4.4 mmol/L (3.4-5.1); Sodium 138 mmol/L (137-145); Total Protein 9.3 g/dL (6.3-8.2)
[2023-10-07 21:37] LABS: Aspartate Aminotransferase 1038 IU/L (17-59)
[2023-10-07 21:52] LABS: Creatine Kinase 56100 U/L (55-170)
[2023-10-07] MEDS: SODIUM CHLORIDE 0.9% 1,000 ML 150 ML IV (22:17)
[2023-10-07 23:52] LABS: Ethanol (ETOH) < 10 mg/dL
[2023-10-08 04:00] VITALS: BP 143/88; PULSE 70; RESP 16; TEMP 36.9; O2SAT 97
--- NOTE | 2023-10-08 06:51 | DI.US.S_ITS ---
PROCEDURE: US ABDOMEN LIMITED INDICATIONS: LIVER DYSFUNCTION TECHNIQUE: Real-time scanning was performed of the right upper quadrant abdomen, with image documentation. COMPARISON: None. FINDINGS: Liver: Liver is normal in size. Mildly increased liver parenchymal echotexture is seen. Normal hepatopetal flow is seen in patent main portal vein. Gallbladder: Multiple stones are seen in dependent portion of gallbladder lumen. No gallbladder wall thickening or pericholecystic fluid. No sonographic Breaux's sign. Biliary ducts: Intrahepatic bile ducts are non-dilated. Extrahepatic bile duct caliber measures 4.3 mm. Normal is 6-7 mm or less in diameter, or 10 mm or less post-cholecystectomy. Pancreas: Not visualized due to overlying bowel gas. Kidneys: Examination of right kidney show no hydronephrosis or nephrolithiasis. No solid masses. Simple appearing cyst is seen in upper pole right kidney measures 2 x 2.1 x 2.3 cm in size. Aorta: Visualized aorta is normal in caliber at less than 3 cm. IVC: Intrahepatic inferior vena cava is patent. Miscellaneous: No free abdominal fluid. IMPRESSION: 1. Mild hepatic steatosis, no discrete hepatic lesion. 2. Cholelithiasis without sonographic evidence of acute cholecystitis. No biliary ductal dilatation. 3. Right renal cyst as above. No hydronephrosis. Dictated by: Abrahan Hamilton M.D. on 10/08/2023 at 8:59 Approved by: Abrahan Hamilton M.D. on 10/08/2023 at 9:08
--- NOTE | 2023-10-08 06:53 | PM.HP.1 ---
History of Present Illness History of Present Illness Date Patient Seen: 10/08/23 Time Patient Seen: 03:12 Chief complaint: fall, unable to move on his own Narrative: 54 years old -[place] male with a past medical history of Parkinson's disease and currently not on medications with no physician follow-up in the past 2 years was brought to the emergency room for progressive weakness. Apparently he lives alone at home and had a fall in the bedroom laying on the ground for approximately 14 hours since he could not call for help. Eventually his daughter went over to his house after he did not answer the phone and found him lying on the ground. Patient denies trauma to the head or loss of consciousness. He had significant weakness in both upper and lower extremity with the rigidity but able to lift the hands in a very slow motion. He was advised walker in the past but does not use it. He does smoke and consume alcohol/marijuana intermittently. In the emergency room, follow-up CT scan of the brain shows no acute process. Labs showed a BUN of 35.0. AST was 1038 and a lipase was 21. Total CPK was 56,100 globulin was 4.6 urinalysis is negative for WBCs and leukocyte esterase. Patient was initiated on IV fluids and admitted for further evaluation [facility] Social History household members: none Smoking Status: Current some day smoker alcohol intake: current Meds Home Medications and Allergies Home Medications Medication Instructions Recorded Confirmed Type famotidine 20 mg tablet (Pepcid) 1 tab PO PRN PRN Heartburn 04/14/18 04/14/18 History polyethylene glycol 3350 17 gram 1 dose PO PRN PRN Constipation 04/14/18 04/14/18 History oral powder packet (Miralax) sulfamethoxazole 800 1 tab PO BID 04/14/18 04/14/18 History mg-trimethoprim 160 mg tablet tramadol 50 mg tablet 50 mg PO Q6H PRN Pain, Moderate 04/14/18 04/14/18 History hydrocodone 5 mg-acetaminophen 325 1 tab PO Q4-6H PRN pain #10 tabs 10/22/18 Rx mg tablet ketorolac 10 mg tablet 10 mg PO Q6H PRN pain #14 tabs 10/22/18 Rx ondansetron 4 mg disintegrating 4 mg PO TID-QID PRN nausea and 10/22/18 Rx tablet vomiting #10 tabs Allergies Allergy/AdvReac Type Severity Reaction Status Date / Time No Known Drug Allergies Allergy Verified 10/07/23 20:49 Review of Systems Review of Systems Narrative: A 12 point review of system is negative unless otherwise stated in the history present illness Exam Vital Signs (past 8 hours): - 10/07/23 23:32 10/07/23 23:59 10/08/23 04:00 Temperature 98.3 F 98.5 F Pulse Rate 75 76 70 Respiratory Rate 12 14 16 Blood Pressure 125/76 146/79 H 143/88 H Pulse Oximetry 100 100 97 Oxygen Delivery Method Room Air Oxygen Flow Rate 0 0 Oxygen Delivery Method Room Air Oxygen Flow Rate 0 Narrative Exam Narrative: Significant rigidity noted in the upper extremity with very slow range of motion's. Oriented and able to give a good history Objective Labs 10/07/23 21:00 10/07/23 21:00 Labs: Laboratory Results - last 24 hr 10/07/23 21:00 WBC 10.1 RBC 4.56 Hgb 14.2 Hct 42.9 MCV 94.1 MCH 31.2 MCHC 33.2 RDW 13.8 Plt Count 131 L Neut % (Auto) 85.8 H Lymph % (Auto) 7.5 L [place] % (Auto) 6.1 Eos % (Auto) 0.0 L Baso % (Auto) 0.6 Neut # (Auto) 8600 H Lymph # (Auto) 800 L [place] # (Auto) 600 Eos # (Auto) 0 Baso # (Auto) 100 Sodium 138 Potassium 4.4 Chloride 100 Carbon Dioxide 27 BUN 35 H Creatinine 1.00 Estimated GFR > 60 BUN/Creatinine Ratio 35.0 H Glucose 90 Calcium 10.0 Total Bilirubin 1.3 AST 1038 H ALT 45 Alkaline Phosphatase 63 Total Creatine Kinase 42520 H Total Protein 9.3 H Albumin 4.7 Globulin 4.6 H Albumin/Globulin Ratio 1.0 Lipase 21 L Ethyl Alcohol < 10 Assessment & Plan Assessment & Plan narrative: 54 years old -[place] male with a past medical history of Parkinson's disease and currently not on medications with no physician follow-up in the past 2 years was brought to the emergency room for progressive weakness. Apparently he lives alone at home and had a fall in the bedroom laying on the ground for approximately 14 hours since he could not call for help. Eventually his daughter went over to his house after he did not answer the phone and found him lying on the ground. Patient denies trauma to the head or loss of consciousness. He had significant weakness in both upper and lower extremity with the rigidity but able to lift the hands in a very slow motion. He was advised walker in the past but does not use it. He does smoke and consume alcohol/marijuana intermittently. In the emergency room, follow-up CT scan of the brain shows no acute process. Labs showed a BUN of 35.0. AST was 1038 and a lipase was 21. Total CPK was 56,100 globulin was 4.6 urinalysis is negative for WBCs and leukocyte esterase. Patient was initiated on IV fluids and admitted for further evaluation 1. Rhabdomyolysis status post fall with significant muscle damage. IV normal saline at 150 mill per hour to continue for now while watching closely for any fluid overload with initial concerns for third spacing of the fluid. Trend renal function closely 2. Gait instability with generalized weakness. Suspect an element of deconditioning with the progression of Parkinson's disease and other issues. Apparently he had stopped taking his home medications for the past 2 years. Consult physical Occupational Therapy for further input 3. Liver dysfunction. AST is 1038 and ALT is 45. Unclear at this time on the etiology. Denies any recent acetaminophen use of more than 4 g in 24 hours. Does drink alcohol. Will get a liver ultrasound for further evaluation and trend the liver enzymes/INR closely 4. Gait instability consult physical and Occupational Therapy for further input 5. Alcohol use but denies daily use. Initiate vitamin B1 and watch for withdrawal symptoms 6 Parkinson's disease. Referred to neurology and reviewed the need for Sinemet #7 DVT prophylaxis will be Lovenox CODE STATUS is full. Patient is being admitted under inpatient status. Given the significant rhabdomyolysis needing volume resuscitation/liver dysfunction needing further evaluation/workup, patient meets criteria for inpatient with expected length of stay greater than 2 midnights Patient was evaluated with the help of video communication device. Provider is located in [facility] VTE Deep Vein Thrombosis/Pulmonary Embolism Present on Admission: No
[2023-10-08 08:00] VITALS: BP 107/60; PULSE 93; RESP 16; TEMP 37.6; O2SAT 97
[2023-10-08 08:46] LABS: Add Manual Diff / Slide Review NO; Basophils Absolute Auto 0 /uL (0-100); Basophils Percent Auto 0.3 % (0-2); Eosinophils Absolute Auto 0 /uL (0-450); Eosinophils Percent Auto 0.1 % (2-4); Hematocrit 35.2 % (41-53); Hemoglobin 11.8 g/dL (13.5-17.5); Lymphocytes Absolute Auto 1100 /uL (1100-4500); Lymphocytes Percent Auto 13.8 % (25-40); Mean Corpuscular HGB Conc 33.7 % (30-36); Mean Corpuscular Hemoglobin 31.4 PG (26-34); Mean Corpuscular Volume 93.3 fL (80-100); Monocytes Absolute Auto 600 /uL (0-900); Monocytes Percent Auto 7.2 % (3-14); Neutrophils Absolute Auto 6000 /uL (1500-7000); Neutrophils Percent Auto 78.6 % (50-75); Platelet Count 121 X10^3/uL (150-400); Red Blood Cell Count 3.77 X10^6/uL (4.5-5.9); Red Cell Distribution Width 13.6 % (11.6-14.8); White Blood Cell Count 7.7 X10^3/uL (4.5-11.0)
[2023-10-08 09:00] LABS: Alanine Aminotransferase 147 IU/L (<50); Albumin 3.5 g/dL (3.5-5.0); Alkaline Phosphatase 54 U/L (38-126); Aspartate Aminotransferase 662 IU/L (17-59); BUN Creatinine Ratio 31.5 (6-22); Bilirubin Total 1.3 mg/dL (0.2-1.3); Blood Urea Nitrogen 29 mg/dL (9-20); Calcium 9.1 mg/dL (8.4-10.2); Carbon Dioxide 26 mmol/L (22-32); Chloride 106 mmol/L (98-107); Estimated Glomerular Filt Rate > 60 mL/min (>60); Globulin 3.4 g/dL (1.7-4.1); Glucose 115 mg/dL (80-110); HEMOLYSIS < 15 (0-50); Magnesium 2.1 mg/dL (1.6-2.3); Sodium 137 mmol/L (137-145); Total Protein 6.9 g/dL (6.3-8.2)
[2023-10-08 09:10] LABS: INR 1.4 (0.9-1.3); Prothrombin Time 16.1 SECONDS (9.4-12.5)
[2023-10-08 09:29] LABS: TSH w/ Reflex to FT4 1.51 uIU/mL (0.47-4.68)
[2023-10-08 09:40] LABS: Creatine Kinase 31332 U/L (55-170)
[2023-10-08] MEDS: SODIUM CHLORIDE 0.9% 1,000 ML 125 ML IV ×2 (10:08→18:36)
[2023-10-08] MEDS: AMANTADINE 100 MG CAPSULE PO ×2 (10:08→21:03)
[2023-10-08] MEDS: CARBIDOPA-LEVODOPA 25/100 TABLET 1 EACH PO ×3 (10:08→18:34)
[2023-10-08] MEDS: THIAMINE 100 MG TABLET PO (10:08)
[2023-10-08] MEDS: HEPARIN 5,000 UNIT/ML VIAL 5000 UNIT SUBCUT ×2 (10:34→21:03)
[2023-10-08] MEDS: polyethylene glycoL 3350 17 GM POWD.PACK PO (10:34)
[2023-10-08] MEDS: ADENOSINE 6 MG/2 ML VIAL IV (11:18)
[2023-10-08] MEDS: SODIUM CHLORIDE 0.9% 1,000 ML 1000 ML IV (11:25)
[2023-10-08] MEDS: SENNOSIDES 8.6 MG TABLET 17.2 MG PO (11:26)
--- NOTE | 2023-10-08 11:27 | DI.ECHO.S_ITS ---
[facility]---------+ [facility] +---------+ : : [address] [place] : : : : [id number] : : : : Phone: [phone]+ Echocardiogram Report + + :Name: TRAVIS CRAWFORD Study Date: 10/08/2023 Height: 68 in : :[facility] ReadingLocation: Weight: 176 lb: : Gender: Male BSA: 1.9 m2 : :: 1955 Age: 67 yrs BP: 92/52 mmHg: :Reason For Study: SVT : :Ordering Physician: BRIGIDA, : :MERON Coto Performed By: Cadence Nagy : :Referring: MERON ALLRED : + + Interpretation Summary Normal sinus rhythm. Normal LV size, wall thickness, wall motion and LV systolic function. EF is 50-55%. Borderline LA enlargement; otherwise normal chamber sizes. No valve abnormalities. No prior study available for comparison. Procedure: A two-dimensional transthoracic echocardiogram with color flow and Doppler was performed. The study quality was technically adequate. There is no prior echocardiogram noted for this patient. The patient was in sinus rhythm with heart rates between 78-82 bpm during the exam. Left Ventricle: The left ventricle is normal in size and wall thickness. The ejection fraction is estimated to be 50-55%. Right Ventricle: The right ventricle is normal in size and function. Atria: The left atrium is borderline dilated. Right atrial size is normal. There is no Doppler evidence for an interatrial shunt. Mitral Valve: There is mild mitral annular calcification. There is borderline mitral valve prolapse. There is prolapse of the posterior mitral valve leaflet(s). There is mild mitral regurgitation. Aortic Valve: The aortic valve is trileaflet. The aortic valve opens well. There is no aortic valve stenosis. No aortic regurgitation is present. Tricuspid Valve: The tricuspid valve is normal in structure and function. There is mild tricuspid regurgitation. The right ventricular systolic pressure is estimated to be at least 29 mmHg based on an estimated right atrial pressure of 3 mm Hg. Pulmonic Valve: The pulmonic valve leaflets are thin and pliable; valve motion is normal. There is mild pulmonic regurgitation. Great Vessels: The aortic root is borderline dilated. The ascending aorta is mildly enlarged. The IVC is of normal diameter and collapses greater than 50% with a sniff. This suggests a low right atrial pressure of 3 mm Hg. Pericardium/ Pleura There is no pericardial effusion. There is no pleural effusion. MMode/2D Measurements & Calculations LVIDd: 5.0 cm LVOT diam: 2.3 cm LVIDs: 3.4 cm Ao root diam: 4.1 cm FS: 31.7 % asc Aorta Diam: 4.1 cm EPSS: 1.0 cm IVSd: 0.95 cm LVPWd: 0.84 cm LV landis. diameter/BSA (cm/m^2): 2.6 LV sys. diameter/BSA (cm/m^2): 1.8 LA A2 area: 20.4 cm2 RA long axis: 4.7 cm LA A4 area: 19.1 cm2 RA area: 16.4 cm2 LA length (vol): 4.8 cm RA vol: 48.0 ml LA vol: 68.3 ml RA : 24.8 ml/m2 LA vol index: 35.3 ml/m2 IVC diam: 2.0 cm RVD1 (basal): 3.9 cm RVD2 (mid): 3.1 cm TAPSE: 2.0 cm Doppler Measurements & Calculations Ao V2 max: 121.3 cm/sec LVOT Max Tuan: 83.3 cm/sec Ao V2 mean: 90.5 cm/sec LV V1 max P.8 mmHg Ao max P.9 mmHg LV V1 VTI: 16.3 cm Ao mean P.6 mmHg ALLYN(I,D): 2.9 cm2 Ao V2 VTI: 24.0 cm ALLYN(V,D): 2.9 cm2 sev ratio: 0.68 ALLYN indexed to BSA (cm^2/m^2): 1.5 MV E max tuan: 67.5 cm/sec TR max tuan: 257.8 cm/sec MV A max tuan: 80.6 cm/sec TR max P.6 mmHg MV E/A: 0.84 PA V2 max: 87.2 cm/sec Med Peak E' Tuan: 9.0 cm/sec PA V2 mean: 61.2 cm/sec E/E' med: 7.5 PA mean P.6 mmHg Lat Peak E' Tuan: 6.3 cm/sec PA pr(Accel): 27.6 mmHg E/E' lat: 10.7 E/e' average: 9.1 MV dec time: 0.19 sec SV(LVOT): 69.3 ml Electronically signed by: Claudia Soto M.D. on Reading Physician:10/08/2023 07:03 PM
[2023-10-08] MEDS: ADENOSINE 6 MG/2 ML VIAL 12 MG IV (11:44)
--- NOTE | 2023-10-08 12:31 | OT.IPNOTE ---
Checked with nursing, pt not medically appropriate today to be seen for therapy evals.
--- NOTE | 2023-10-08 12:32 | PT-IP ANOTE ---
PT eval received but per nurse, pt is not appropriate for PT at this time. will hold today and f/u tomorrow.
--- NOTE | 2023-10-08 12:48 | PC.NURSE ---
This nurse called this am when pt's HR jumped from 90s up to 130s. BP at this time was 101/60, HR 134, pt asymptomatic, Dr. Sesay aware. EKG confirmed SVT; IV metoprolol and a bolus ordered. Upon vitals recheck before metoprolol administration, BP was found to have dropped to 83/45, HR 140, pt still asymptomatic. Adenosine ordered instead of metoprolol. Per protocol: pt on tele, ICU notified before 6mg adenosine IV push. About 10 min following 6mg IV push, BP 96/57, HR 144, pt still asymptomatic. 12mg adenosine IV push ordered. Defibrillator pads placed on pt before administration, and pt's legs elevated immediately after IV push. 5 min after administration, HR 87, BP 115/68, pt c/o chest tightness during adenosine administration but quickly resolved. EKG confirmed NSR. Pt now resting comfortably in bed, soft touch call light within reach. Daughter Roxanna updated over the phone.
[2023-10-08 12:53] VITALS: BP 92/52; PULSE 81; RESP 20; TEMP 37.5; O2SAT 98
--- NOTE | 2023-10-08 14:41 | CM.DANOTE ---
Patient is a 67 yo male who was admitted on 10/07/23 for GLF/Rhabdo. Pt has MCR A Only and limited for insurance and currently no PCP. EMR was reviewed. Per MD, pt with a hx of Parkinsons but has not been taking his medications or seen his PCP in a couple years. Pt admitted after GLF and weakness and unable to get up for at least 14 hours and being treated for rhabdo. PT/OT ordered and pending as pt not yet able to participate today. SW attempted to meet bedside but pt requesting to sleep as he feels he has barely slept over the past day or two. Pt lives in [place] alone but has local supportive Dtr Roxanna and pt has been mostly independent with ADLs and anticipate that starting Sinemet will help pt with his mobility and strength. Plan: SW to follow closely tomorrow for PT/OT eval and recommendations towards determining discharge planning needs of likely HH vs SNF. SHAINA Mcqueen Discharge Planning/Care Management CM Discharge Assessment Start: 10/08/23 14:35 Freq: Status: Active Protocol: Document 10/08/23 14:35 BF (Rec: 10/08/23 14:41 BF [id number]) Discharge Planning Assessment Assigned Board [employer] Supervisor SHAINA Aldana DPOA/Assigned Designee Name Dtdeep Mcknight Contact Information [phone] Advance Directives? No Advance Directives on File No History Provided By Patient,Medical Record Has Patient been admitted in last 30 No days? Prior Living Arrangements Apartment/Condo Household Members none Type of transporation used prior to Relies on Others admit Independent with ADL's Yes: mostly Is patient alert and oriented? Yes Needs Assistance With Meal Prep,Home Chores / Shopping Caregiver for Another No DME Already Rented / Owned FWW / Walker Comment has FWW but doesn't use it Patient/Family Preference Snf Facility,Home with Home Health Comment Pending PT/OT eval and recommendations Barriers to Discharge No Discharge Plan Home with Home Health Transportation Arrangement likely family if home or facility van if SNF Additional Comment Pending PT/OT eval Whiteboard Updated in Patient Room with Yes name and ext. # of Board [employer] Supervisor Review Status In Process Please Provide Date Initial DC 10/08/23 Assessment Was Performed Next Review Type Continued Stay Review
--- NOTE | 2023-10-08 15:31 | PM.HP.1 ---
History of Present Illness History of Present Illness Date Patient Seen: 10/08/23 Time Patient Seen: 03:12 Chief complaint: fall, unable to move on his own Narrative: Per overnight provider: 54 years old -Bel[place]ian male with a past medical history of Parkinson's disease and currently not on medications with no physician follow-up in the past 2 years was brought to the emergency room for progressive weakness. Apparently he lives alone at home and had a fall in the bedroom laying on the ground for approximately 14 hours since he could not call for help. Eventually his daughter went over to his house after he did not answer the phone and found him lying on the ground. Patient denies trauma to the head or loss of consciousness. He had significant weakness in both upper and lower extremity with the rigidity but able to lift the hands in a very slow motion. He was advised walker in the past but does not use it. He does smoke and consume alcohol/marijuana intermittently. In the emergency room, follow-up CT scan of the brain shows no acute process. Labs showed a BUN of 35.0. AST was 1038 and a lipase was 21. Total CPK was 56,100 globulin was 4.6 urinalysis is negative for WBCs and leukocyte esterase. Patient was initiated on IV fluids and admitted for further evaluation [facility] Social History household members: none Smoking Status: Current some day smoker alcohol intake: current Meds Home Medications and Allergies Home Medications Medication Instructions Recorded Confirmed Type famotidine 20 mg tablet (Pepcid) 1 tab PO PRN PRN Heartburn 04/14/18 04/14/18 History polyethylene glycol 3350 17 gram 1 dose PO PRN PRN Constipation 04/14/18 04/14/18 History oral powder packet (Miralax) sulfamethoxazole 800 1 tab PO BID 04/14/18 04/14/18 History mg-trimethoprim 160 mg tablet tramadol 50 mg tablet 50 mg PO Q6H PRN Pain, Moderate 04/14/18 04/14/18 History hydrocodone 5 mg-acetaminophen 325 1 tab PO Q4-6H PRN pain #10 tabs 10/22/18 Rx mg tablet ketorolac 10 mg tablet 10 mg PO Q6H PRN pain #14 tabs 10/22/18 Rx ondansetron 4 mg disintegrating 4 mg PO TID-QID PRN nausea and 02/02/19 Rx tablet vomiting #10 tabs Allergies Allergy/AdvReac Type Severity Reaction Status Date / Time No Known Drug Allergies Allergy Verified 10/07/23 20:49 Review of Systems Review of Systems Narrative: All other systems reviewed with the patient and are negative unless otherwise stated. Exam Vital Signs (past 8 hours): - 10/08/23 08:00 10/08/23 09:30 10/08/23 12:53 Temperature 99.7 F H 99.5 F Pulse Rate 93 H 81 Respiratory Rate 16 20 Blood Pressure 107/60 92/52 L Pulse Oximetry 97 98 Oxygen Delivery Method Room Air Oxygen Flow Rate 0 0 Oxygen Delivery Method Room Air Oxygen Flow Rate 0 Narrative Exam Narrative: GEN: no acute distress HEENT: moist mucous membranes, PERRL NECK: trachea midline, no JVD CV: regular rate and rhythm, no murmurs PULM: clear bilaterally ABD: soft, nontender, nondistended, no organomegaly EXT: warm and well perfused with no edema NEURO: awake, alert, oriented, significant rigitiy of all limbs, tremor present Objective Labs 10/08/23 08:16 10/08/23 08:16 Labs: Laboratory Results - last 24 hr 10/07/23 10/08/23 10/08/23 21:00 08:16 08:45 WBC 10.1 7.7 RBC 4.56 3.77 L Hgb 14.2 11.8 L Hct 42.9 35.2 L MCV 94.1 93.3 MCH 31.2 31.4 MCHC 33.2 33.7 RDW 13.8 13.6 Plt Count 131 L 121 L Neut % (Auto) 85.8 H 78.6 H Lymph % (Auto) 7.5 L 13.8 L [place] % (Auto) 6.1 7.2 Eos % (Auto) 0.0 L 0.1 L Baso % (Auto) 0.6 0.3 Neut # (Auto) 8600 H 6000 Lymph # (Auto) 800 L 1100 [place] # (Auto) 600 600 Eos # (Auto) 0 0 Baso # (Auto) 100 0 PT 16.1 H INR 1.4 H Sodium 138 137 Potassium 4.4 4.0 Chloride 100 106 Carbon Dioxide 27 26 BUN 35 H 29 H Creatinine 1.00 0.92 Estimated GFR > 60 > 60 BUN/Creatinine Ratio 35.0 H 31.5 H Glucose 90 115 H Calcium 10.0 9.1 Phosphorus 3.0 Magnesium 2.1 Total Bilirubin 1.3 1.3 AST 1038 H 662 H ALT 45 147 H Alkaline Phosphatase 63 54 Total Creatine Kinase 14704 H 03354 H D Total Protein 9.3 H 6.9 Albumin 4.7 3.5 Globulin 4.6 H 3.4 Albumin/Globulin Ratio 1.0 1.0 Lipase 21 L TSH 1.51 Ethyl Alcohol < 10 Assessment & Plan Assessment & Plan narrative: 1. Rhabdomyolysis status post fall with significant muscle damage. IV normal saline at 150 mill per hour to continue for now while watching closely for any fluid overload with initial concerns for third spacing of the fluid. Trend renal function and CK. 2. Gait instability with generalized weakness. Suspect an element of deconditioning with the progression of Parkinson's disease and other issues. Apparently he had stopped taking his home medications for the past 2 years. PT/OT evals. 3. Liver dysfunction. AST is 1038 and ALT is 45. Unclear at this time on the etiology. Denies any recent acetaminophen use of more than 4 g in 24 hours. Does drink alcohol. Liver US with fatty infiltration. No cholecystitis. Possibly from rhabdo. 4. Gait instability. PT/OT evals. 5. Alcohol use but denies daily use. Initiate vitamin B1 and watch for withdrawal symptoms 6. Parkinson's disease. Restart sinemet 25/100 TID and amantadine 100mg BID, both of which patient was on previously 2 years ago. 7. Acute SVT now resolved. Patient had HR in 140-160's at rest on 10/08. EKG showed SVT. Given 8mg then 12mg adenosine push and SVT converted to NSR confirmed by repeat EKG. Continue tele. Keep electrolytes normal. DVT prophylaxis will be Lovenox CODE STATUS is full. Dispo: 2-3 days to improve strength. Then likely SNF. Quality VTE Deep Vein Thrombosis/Pulmonary Embolism Present on Admission: No
[2023-10-08 16:00] VITALS: BP 116/62; PULSE 77; RESP 18; TEMP 37.5; O2SAT 98
[2023-10-08] MEDS: POLYVINYL ALCOHOL DROPS 1 DROPS EYE-BOTH (18:43)
[2023-10-08 20:35] VITALS: BP 106/58; PULSE 78; RESP 16; TEMP 37.5; O2SAT 96
[2023-10-09 00:35] VITALS: BP 106/54; PULSE 74; RESP 16; TEMP 36.9; O2SAT 95
[2023-10-09 04:55] VITALS: BP 93/45; PULSE 68; RESP 16; TEMP 37; O2SAT 97
[2023-10-09 08:00] VITALS: BP 97/52; PULSE 74; RESP 20; TEMP 37.2; O2SAT 97
[2023-10-09] MEDS: THIAMINE 100 MG TABLET PO (09:03)
[2023-10-09] MEDS: AMANTADINE 100 MG CAPSULE PO ×2 (09:03→21:28)
[2023-10-09] MEDS: CARBIDOPA-LEVODOPA 25/100 TABLET 1 EACH PO ×3 (09:03→17:40)
[2023-10-09] MEDS: POLYVINYL ALCOHOL DROPS 1 DROPS EYE-BOTH (09:03)
[2023-10-09] MEDS: HEPARIN 5,000 UNIT/ML VIAL 5000 UNIT SUBCUT ×2 (09:03→21:28)
[2023-10-09 09:26] LABS: Add Manual Diff / Slide Review NO; Basophils Absolute Auto 100 /uL (0-100); Eosinophils Absolute Auto 0 /uL (0-450); Eosinophils Percent Auto 0.7 % (2-4); Hemoglobin 10.3 g/dL (13.5-17.5); Lymphocytes Absolute Auto 1500 /uL (1100-4500); Lymphocytes Percent Auto 24.4 % (25-40); Mean Corpuscular HGB Conc 33.4 % (30-36); Mean Corpuscular Hemoglobin 31.3 PG (26-34); Mean Corpuscular Volume 93.7 fL (80-100); Monocytes Absolute Auto 400 /uL (0-900); Monocytes Percent Auto 6.1 % (3-14); Neutrophils Absolute Auto 4100 /uL (1500-7000); Neutrophils Percent Auto 67.8 % (50-75); Platelet Count 97 X10^3/uL (150-400); Red Blood Cell Count 3.31 X10^6/uL (4.5-5.9); Red Cell Distribution Width 13.4 % (11.6-14.8)
[2023-10-09 09:41] LABS: Alanine Aminotransferase 122 IU/L (<50); Alkaline Phosphatase 46 U/L (38-126); Aspartate Aminotransferase 435 IU/L (17-59); BUN Creatinine Ratio 18.9 (6-22); Bilirubin Total 0.8 mg/dL (0.2-1.3); Blood Urea Nitrogen 18 mg/dL (9-20); Calcium 8.4 mg/dL (8.4-10.2); Carbon Dioxide 27 mmol/L (22-32); Chloride 105 mmol/L (98-107); Estimated Glomerular Filt Rate > 60 mL/min (>60); Globulin 3.1 g/dL (1.7-4.1); Glucose 109 mg/dL (80-110); HEMOLYSIS < 15 (0-50); Potassium 3.6 mmol/L (3.4-5.1); Sodium 136 mmol/L (137-145); Total Protein 6.1 g/dL (6.3-8.2)
--- NOTE | 2023-10-09 10:15 | PT.IIE ---
Current Diagnoses Rhabdomyolysis (10/07/23) Physical Therapy Inpatient Evaluation/Re-Eval M1 PT/OT-IP Prior Functional Status Start: 10/09/23 11:53 Freq: NEEDED Status: Active Protocol: Document 10/09/23 10:15 AB (Rec: 10/09/23 12:13 AB [id number]) Medical Review Prior Functional Status Medical History Reviewed Yes Communication able to make needs known Mobility and Gait pt stated that he was modified independent with all mobilities and ambulation without AD; has h/o falls and had already had 2 falls this year Social History Household Members none Living Arrangements Apartment/Condo Number of Floors (Floors) One Floor Number of Stairs To Enter/Railing? 7 steps R rail descending to go down to his apartment Home Environment Standard Height Toilet,Tub/ Shower Home Equipment Shower Seat without Backrest Additional Social History Comment pt stated that his children will bring food for him M2 PT-IP Current Condition Start: 10/09/23 11:53 Freq: NEEDED Status: Active Protocol: Document 10/09/23 10:15 AB (Rec: 10/09/23 12:13 AB [id number]) Physical Therapy Current Condition Current Condition Evaluation Date 10/09/23 Treatment Diagnosis PD; Rhabdomyolysis; difficulty in walking Onset Date 10/07/23 M3 PT-IP Subjective Start: 10/09/23 11:53 Freq: NEEDED Status: Active Protocol: Document 10/09/23 10:15 AB (Rec: 10/09/23 12:13 AB [id number]) Subjective Physical Therapy Visit Type Type Initial Evaluation Visit Start Time 10:15 Visit Stop Time 11:00 Total Visit Minutes 45 Notes checked with nurse and stated that pt is doing better today and HR is better. pt was on hold yesterday due to pt being on sinus v tach. Number of RUBBER BALL FINISHER Visits 0 Physical Therapy Visit Comments Patient Comments agreeable to do PT Therapy Pain Assessment Pain When Pain Assessed At Rest Pain Present Pain Present Pain Reported Location Right Buttock Intensity 3 Scale Used Numeric (0 - 10) Pain Management Techniques Distraction,Modification of Treatment,Re-positioning M4 PT-IP Mobility and Gait Start: 10/09/23 11:53 Freq: NEEDED Status: Active Protocol: Document 10/09/23 10:15 AB (Rec: 10/09/23 12:13 AB [id number]) PT-Bed Mobility Assessment Supine to Sit Supine to Sit Maximum Assistance,2 Person Assistance,Head of Bed Elevated,Bedrails Scooting Scooting to Edge of Bed Maximum Assistance,Dependent PT-Transfer Assessment Sit to and From Stand Sit to and from Stand Maximum Assistance,1 Person Assistance,2 Person Assistance ,Use of Upper Extremities Equipment Transfer Assistive Device Gait Belt,Front Wheeled Walker Orthotic/Prosthetic Devices or Brace: No Transfers Transfer Destination Chair Transfer Technique Stand Step Pivot Transfer Ability Level of Assist Maximum Assistance,2 Person Assistance,Use of Upper Extremities Comments Mobility Comments pt supine in bed and agreeable to do PT. obtained PLOF and home set up info from pt. BP in supine 97/52 WI: 80 O2 sat 100% pt completed supine to sit max A x 2 and max cues. increase posterior trunk lean requiring max A for sitting balance. max A x 1-2 to scooting to EOB. BP in sitting : 112/54 completed sit to stand max A but unable to stand upright requiring to sit back down. attempted again with max A x 2 and max cues and step transfer to chair using FWW max A x 2 and max cues. pt with increase posterior LOB requiring max A for steadiness and max cues with all tasks. pt with freezing episode midway with transfer and requiring max A for weight shifting and for moving LE to transfer. positioned pt on the chair. call light and table placed within reach. pt stated that he does not know why he cannot move his legs. reminded pt of his parkinson's dse dx and pt stated that he was not taking his parkinsons' medication because he does not know what parkinson's is and that the medication is doing anything to help him at that time. Gait Assessment Comments Gait Comments unable at this time PT-Balance Assessment Sitting Balance and Reactions Static Sitting Balance Ability Poor Dynamic Sitting Balance Ability Poor Standing Balance and Reactions Static Standing Balance Ability Poor Dynamic Standing Balance Ability Poor Device Used FWW M5 PT-IP Objective Assessments Start: 10/09/23 11:53 Freq: NEEDED Status: Active Protocol: Document 10/09/23 10:15 AB (Rec: 10/09/23 12:13 AB [id number]) Orientation Orientation/Cognition Level of Alertness Alert Orientation Name Language Function Ability No Deficits Noted Safety Awareness Decreased Safety Awareness Memory Description Short Term Impaired Gross Range of Motion Lower Extremity ROM Assessment Within Functional Limits Strength Lower Extremity Strength Assessment Right Impaired Hip 3+/5 Knee 3+/5 Sensation Assessment Sensation Gross Sensation Right LE Impaired Sensation Description Numbness Comments Sensation Comments c/o numbness on R foot Muscle Tone Muscle Tone WNL Yes M6 PT-IP Treatment Start: 10/09/23 11:53 Freq: NEEDED Status: Active Protocol: Document 10/09/23 10:15 AB (Rec: 10/09/23 12:13 AB [id number]) Physical Therapy Treatment Education Education Provided Precautions,Weight Bearing Status,Post-Op Packet,Safety M7 PT-IP Assessment and Plan Start: 10/09/23 11:53 Freq: NEEDED Status: Active Protocol: Document 10/09/23 10:15 AB (Rec: 10/09/23 12:13 AB [id number]) PT Summary Assessment and Plan Potential Rehabilitation Potential Fair Status of Condition at Evaluation Evolving Summary Impairments Pain,ROM,Strength,Balance, Coordination,Sensation,Tone, Cognition,Bed Mobility, Transfers,Gait,Activity Tolerance Assessment Summary pt is a 67 y/o M who presented to the ED s/p fall and unable move at home. per EMR, pt with dx of Parkinson's dse but was not taking his medications for the past 2 years. pt admitted for rhabomyolysis and PD. pt requiring max A x 2 with bed mobility and transfers using FWW and unable to ambulate at this time. pt with increase tightness and with with freezing episode during transfers. pt will require SNF rehab to improve strength and mobility. will continue PT while pt is in the hospital and will continue to assess progress. Goals Bed Mobility Goal Moderate Assistance Transfer Goal Moderate Assistance,Front Wheeled Walker Gait Goal Moderate Assistance,Front Wheel Walker Gait Distance 50 Other Goals improve bed mobility, transfers, ambulation using FWW ~ 200 ft SBA up/down 7 steps R rail descending SBA Days to Meet Goals 10 Frequency of Treatment Frequency Of Treatment Once a Day Treatment Plan Physical Therapy Treatment Plan Bed Mobility Training,Transfer Training,Gait Training, Therapeutic Exercise,Balance Retraining,Discharge Planning, Hot or Cold Pack,Neuromuscular Re-ed,Coordination Retraining ,Manual Therapy Precautions Other Precautions falls, BP Recommendations To Nursing Amount of Assist Needed 2 Person Assist Discharge Recommendations PT Discharge Recommendations SNF Rehab Transportation Needs at Discharge Wheelchair/Cabulance
[2023-10-09 11:02] LABS: Creatine Kinase 20842 U/L (55-170)
[2023-10-09 12:00] VITALS: BP 99/53; PULSE 85; RESP 18; O2SAT 99
[2023-10-09] MEDS: ACETAMINOPHEN 325 MG TABLET PO (12:21)
--- NOTE | 2023-10-09 15:04 | CM.DPC ---
DCP SNF Planning: Per MD, pt more medically stable today and appropriate for PT/OT as yesterday initial eval was held. Pt still very rigid but Sinemet started and anticipate pt will have reduction in his rigidity. OT eval pending as no OT available this weekend. Per PT, pt unable to ambulate today and remains quite rigid but was able to transfer to chair with max assist and recommending SNF rehab at d/c. SW met bedside with pt and explained role and he confirms he lives in an apt in [place] and his Dtr Roxanna also lives in [place] but works in [place] and pt also has adult son who lives closer to [facility]. Pt confirms he has no PCP as [place] and pt no longer has his benefits and has not established with a PCP for the past 2 years. Pt's preference is not to have his primary care on [facility] but would prefer [place]. SW to get pt print out of PCP options in [place] as pt does not have his glasses or cell phone at the hospital. SW discussed SNF recommendation and provided the SNF Choice list and pt preference is not [facility] but [place] at [facility]. SW explained Medicare coverage of SNF and pt only MCR A so if more than 20 days would have to pay a copay and pt agreeable. Pt confirms he has no hx of HH or SNF and SW explained SNF purpose and setting and pt remains agreeable to SNF at this time and requests SW call his Dtr Roxanna to explain SNF and update. SW called pt's Dtr Roxanna and updated on above information and she also requested SW inquire with [facility] and [facility] and they are both in between where she lives and works and pt's son lives so both could visit and support pt better. Dtr on her way with pt's son/her brother now to visit and will discuss with pt as well. PASRR completed. SW made referrals to [facility], [facility], and [facility]. Plan: SW to follow closely with above SNFs review to determine if they can accept and pt's progress with PT to confirm SNF vs Home. SHAINA Mcqueen
--- NOTE | 2023-10-09 15:35 | P.PN_ITS ---
Subjective Subjective Interval history: Patient feeling good today. Able to move alot better with the sinemet. Worked with PT and SNF recommended. CK downtrending to 20k. Exam Vital Signs (past 8 hours): - 10/09/23 08:00 10/09/23 12:00 Temperature 99.0 F Pulse Rate 74 85 Respiratory Rate 20 18 Blood Pressure 97/52 L 99/53 L Pulse Oximetry 97 99 Oxygen Flow Rate 0 0 Oxygen Delivery Method Room Air Oxygen Flow Rate 0 Narrative Exam Narrative: GEN: no acute distress HEENT: moist mucous membranes, PERRL NECK: trachea midline, no JVD CV: regular rate and rhythm, no murmurs PULM: clear bilaterally ABD: soft, nontender, nondistended, no organomegaly EXT: warm and well perfused with no edema NEURO: awake, alert, oriented, improved rigidity of limbs, tremor present Objective Labs 10/09/23 09:10 10/09/23 09:10 Labs: Laboratory Results - last 24 hr 10/09/23 09:10 WBC 6.0 RBC 3.31 L Hgb 10.3 L Hct 31.0 L MCV 93.7 MCH 31.3 MCHC 33.4 RDW 13.4 Plt Count 97 L Neut % (Auto) 67.8 Lymph % (Auto) 24.4 L [place] % (Auto) 6.1 Eos % (Auto) 0.7 L Baso % (Auto) 1.0 Neut # (Auto) 4100 Lymph # (Auto) 1500 [place] # (Auto) 400 Eos # (Auto) 0 Baso # (Auto) 100 Sodium 136 L Potassium 3.6 Chloride 105 Carbon Dioxide 27 BUN 18 Creatinine 0.95 Estimated GFR > 60 BUN/Creatinine Ratio 18.9 Glucose 109 Calcium 8.4 Total Bilirubin 0.8 AST 435 H ALT 122 H Alkaline Phosphatase 46 Total Creatine Kinase 72706 H Total Protein 6.1 L Albumin 3.0 L Globulin 3.1 Albumin/Globulin Ratio 1.0 [facility] Social History household members: none Smoking Status: Current some day smoker alcohol intake: current Assessment & Plan Assessment & Plan narrative: 1. Rhabdomyolysis status post fall with significant muscle damage. IV normal saline at 150 mill per hour to continue for now while watching closely for any fluid overload with initial concerns for third spacing of the fluid. Trend renal function and CK. CK downtrending and Cr still normal. 2. Gait instability with generalized weakness. Suspect an element of deconditioning with the progression of Parkinson's disease and other issues. Apparently he had stopped taking his home medications for the past 2 years. PT eval rec SNF. 3. Liver dysfunction. AST is 1038 and ALT is 45 on admission. Unclear at this time on the etiology. Denies any recent acetaminophen use of more than 4 g in 24 hours. Does drink alcohol. Liver US with fatty infiltration. No cholecystitis. Possibly from rhabdo. LFT's downtrending. 4. Gait instability. PT/OT evals. 5. Alcohol use but denies daily use. Initiate vitamin B1 and watch for withdrawal symptoms 6. Parkinson's disease. Restart sinemet 25/100 TID and amantadine 100mg BID, both of which patient was on previously 2 years ago. Rigidity in limbs now improving. 7. Acute SVT now resolved. Patient had HR in 140-160's at rest on 10/08. EKG showed SVT. Given 8mg then 12mg adenosine push and SVT converted to NSR confirmed by repeat EKG. Continue tele. Keep electrolytes normal. DVT prophylaxis will be Lovenox CODE STATUS is full. Dispo: SNF in 1-2 days. Quality VTE Deep Vein Thrombosis/Pulmonary Embolism Present on Admission: No
[2023-10-09 16:00] VITALS: BP 118/65; PULSE 74; RESP 18; O2SAT 100
[2023-10-09] MEDS: SODIUM CHLORIDE 0.9% 1,000 ML 100 ML IV (18:31)
[2023-10-09 19:45] VITALS: BP 120/68; PULSE 74; RESP 16; TEMP 37.2; O2SAT 100
[2023-10-10 00:35] VITALS: BP 125/74; PULSE 65; RESP 16; TEMP 36.9; O2SAT 99
[2023-10-10] MEDS: SODIUM CHLORIDE 0.9% 1,000 ML 100 ML IV ×2 (03:20→10:30)
[2023-10-10 04:10] VITALS: BP 122/77; PULSE 63; RESP 16; TEMP 36.4; O2SAT 99
[2023-10-10 05:29] LABS: Add Manual Diff / Slide Review NO; Basophils Absolute Auto 0 /uL (0-100); Basophils Percent Auto 0.7 % (0-2); Eosinophils Absolute Auto 100 /uL (0-450); Eosinophils Percent Auto 2.1 % (2-4); Hemoglobin 9.9 g/dL (13.5-17.5); Lymphocytes Absolute Auto 1500 /uL (1100-4500); Lymphocytes Percent Auto 28.4 % (25-40); Mean Corpuscular HGB Conc 34.1 % (30-36); Mean Corpuscular Hemoglobin 31.7 PG (26-34); Mean Corpuscular Volume 92.9 fL (80-100); Monocytes Absolute Auto 400 /uL (0-900); Monocytes Percent Auto 6.8 % (3-14); Neutrophils Absolute Auto 3300 /uL (1500-7000); Platelet Count 98 X10^3/uL (150-400); Red Blood Cell Count 3.12 X10^6/uL (4.5-5.9); Red Cell Distribution Width 13.1 % (11.6-14.8); White Blood Cell Count 5.3 X10^3/uL (4.5-11.0)
[2023-10-10 05:40] LABS: Alanine Aminotransferase 131 IU/L (<50); Albumin 2.8 g/dL (3.5-5.0); Albumin Globulin Ratio 0.9 (1.0-2.8); Alkaline Phosphatase 49 U/L (38-126); Aspartate Aminotransferase 332 IU/L (17-59); BUN Creatinine Ratio 18.2 (6-22); Bilirubin Total 0.6 mg/dL (0.2-1.3); Blood Urea Nitrogen 16 mg/dL (9-20); Calcium 8.4 mg/dL (8.4-10.2); Carbon Dioxide 29 mmol/L (22-32); Chloride 105 mmol/L (98-107); Estimated Glomerular Filt Rate > 60 mL/min (>60); Globulin 3.1 g/dL (1.7-4.1); Glucose 93 mg/dL (80-110); HEMOLYSIS < 15 (0-50); Potassium 3.8 mmol/L (3.4-5.1); Sodium 136 mmol/L (137-145); Total Protein 5.9 g/dL (6.3-8.2)
[2023-10-10 05:58] LABS: Creatine Kinase 14556 U/L (55-170)
[2023-10-10 07:45] VITALS: BP 115/71; PULSE 64; RESP 17; TEMP 37.5; O2SAT 100
[2023-10-10] MEDS: THIAMINE 100 MG TABLET PO (10:01)
[2023-10-10] MEDS: HEPARIN 5,000 UNIT/ML VIAL 5000 UNIT SUBCUT ×2 (10:02→21:14)
[2023-10-10] MEDS: AMANTADINE 100 MG CAPSULE PO ×2 (10:02→21:14)
[2023-10-10] MEDS: CARBIDOPA-LEVODOPA 25/100 TABLET 1 EACH PO ×3 (10:02→17:04)
[2023-10-10] MEDS: polyethylene glycoL 3350 17 GM POWD.PACK PO (10:02)
[2023-10-10] MEDS: ACETAMINOPHEN 325 MG TABLET PO (10:05)
--- NOTE | 2023-10-10 10:18 | DI.US.S_ITS ---
PROCEDURE: US PERIPH VENOUS UP EXTREM RT INDICATIONS: r/o DVT TECHNIQUE: Real-time imaging, as well as color and pulse Doppler interrogation, was performed of the upper extremity deep veins from the inferior neck to the antecubital fossa. COMPARISON: None. FINDINGS: The internal jugular vein, visualized portions of the subclavian vein, axillary, and brachial veins are free of intraluminal thrombus. Where physically possible, the veins are normally compressible. Color and pulse Doppler demonstrate normal intraluminal flow, with expected phasicity and pulsatility. Additional scanning of the cephalic and basilic veins of the superficial system demonstrates normal compressibility, without thrombus. Incidental slow flow noted adjacent to and intravascular catheter in the upper forearm IMPRESSION: No findings of upper extremity deep venous thrombosis. Approved by: Everton Simpson M.D. on 10/10/2023 at 13:03
--- NOTE | 2023-10-10 10:27 | CM.DPC ---
Addendum entered by SHAINA Mcqueen 10/10/23 11:59: ADD: [facility] currently does not have beds (due to a couple COVID+ residents). [facility] confirms they can accept pt and may have a bed tomorrow Mon but for sure 10/12/23 and request SW check in with admissions in the morning on their bed availability. SW faxed updated PT/RN/med list to [facility] to review. Pt would have a copay of $204 per day if he stays longer than 20 days at SNF since he does not have a supplemental insurance. BROOK met bedside with pt and updated on [facility] acceptance and copay starting day 21 and pt is agreeable with [facility] and SW discussed facility will provide cabulance for transport at d/c. SW also provided and discussed MCR part B and SHIBA information and pt appreciative and also made sure pt had [facility] brochure and [place] accepting PCP. Pt then states he is considering PCP in [facility] as his Neurologist is at [facility] and might make sense for continuity of care. Pt also requests SW update his Dtr. BROOK called Dtr Roxanna and updated on above and she confirms she is actively working on Medicare Part B enrollment for the pt and plans to be at [facility] when pt is transferred for SNF rehab for additional assist. BF Original Note: DCP SNF Planning Cont: Per MD, pt making progress but labs improving but not yet stable for discharge today but likely one more day. BROOK spoke to admissions at [facility] and they currently are declining accepting pt due to his lack of Medicare Part B and concern that pt might need more than 20 days at SNF and would then require $200 copay along with no access to for d/c plan to home since he has no MCR B and also lack of prescription coverage. BROOK spoke to Alem at [facility] and she will review now and updated that pt is Medicare primary and starting to make some progress with PT after being on Sinemet for a couple days and pt likely stable for d/c tomorrow and she will review and let SW know if they can accept. BROOK called [facility] but admissions phone vm full and not accepting new vm and emailed [facility] with update above and inquired if they could accept pt tomorrow and requested call back. PASRR done yesterday. SW printed off the information from Medicare.gov website regarding the Penalty Fee for not signing up for Medicare Part B and also the [facility] SocialDial info for [facility] help with Medicare questions and enrollment and provided to the patient. Plan: BROOK to follow for PT updated note for today to send to [facility] and [facility] to determine if either can accept at discharge likely tomorrow 10/11/23. SHAINA Mcqueen
--- NOTE | 2023-10-10 10:59 | PT.IPTN ---
Current Diagnoses Rhabdomyolysis (10/07/23) Physical Therapy Treatment Note M2 PT-IP Current Condition Start: 10/09/23 11:53 Freq: NEEDED Status: Active Protocol: Document 10/09/23 10:15 AB (Rec: 10/09/23 12:13 AB [id number]) Physical Therapy Current Condition Current Condition Evaluation Date 10/09/23 Treatment Diagnosis PD; Rhabdomyolysis; difficulty in walking Onset Date 10/07/23 M3 PT-IP Subjective Start: 10/09/23 11:53 Freq: NEEDED Status: Active Protocol: Document 10/10/23 10:20 MB (Rec: 10/10/23 10:59 MB [id number]) Subjective Physical Therapy Visit Type Type Treatment Note Visit Start Time 10:20 Visit Stop Time 10:50 Total Visit Minutes 30 Number of PULL UP HAND Visits 0 Physical Therapy Visit Comments Patient Comments Pt is agreeable to PT. Therapy Pain Assessment Pain When Pain Assessed During Mobility Pain Present Pain Present Pain Reported Location Right Buttock Intensity 5 Scale Used Liu-Jeffries (Faces) Pain Management Techniques Distraction,Modification of Treatment,Re-positioning M4 PT-IP Mobility and Gait Start: 10/09/23 11:53 Freq: NEEDED Status: Active Protocol: Document 10/10/23 10:20 MB (Rec: 10/10/23 10:59 MB [id number]) PT-Bed Mobility Assessment Supine to Sit Supine to Sit Standby Assistance,1 Person Assistance,Head of Bed Elevated,Bedrails Scooting Scooting to Edge of Bed Standby Assistance PT-Transfer Assessment Sit to and From Stand Sit to and from Stand Minimal Assistance,1 Person Assistance,Use of Upper Extremities Equipment Transfer Assistive Device Gait Belt,Front Wheeled Walker Orthotic/Prosthetic Devices or Brace: No Transfers Transfer Destination Chair Transfer Technique Stepping Transfer Ability Level of Assist Moderate Assistance,1 Person Assistance,Use of Upper Extremities Comments Mobility Comments Pt denies light-headedness today. PT attempts to get manual pulse with mobility and his HR is irregular. Pt presents with bradykinesia and requires about 5 minutes to perform bed mobility and PT provides cues to move BIG and encouraging cues. PT does not provide any tactile assistance today. STS from bed to RW and RW to chair with cues and min A. Stepping requires mod to max A to move the walker and min A through gait belt to help with balance d/t posterior lean and little steps. Gait Assessment Gait Gait Assistance Required: Moderate Assistance,Maximum Assistance,1 Person Assist Distance (Feet) 2 Able to Maintain Weight Bearing Status Yes During Gait Assistive Devices Assistive Device Gait Belt,Front Wheeled Walker Orthotic/Prosthetic Devices or Brace: No Gait Deviations General Gait Pattern Decreased Stride Length, Decreased Feet Clearance, Festinating,Flexed Trunk, Narrow Based Gait,Step-to Gait Factors Limiting Gait Function Factors Limiting Gait Function Decreased Activity Tolerance, Decreased Strength, Incoordination,Pain,Poor Balance Comments Gait Comments See comments for mobility PT-Balance Assessment Sitting Balance and Reactions Static Sitting Balance Ability Fair Dynamic Sitting Balance Ability Fair Standing Balance and Reactions Static Standing Balance Ability Fair Dynamic Standing Balance Ability Poor Device Used RW M5 PT-IP Objective Assessments Start: 10/09/23 11:53 Freq: NEEDED Status: Active Protocol: Document 10/09/23 10:15 AB (Rec: 10/09/23 12:13 AB [id number]) Orientation Orientation/Cognition Level of Alertness Alert Orientation Name Language Function Ability No Deficits Noted Safety Awareness Decreased Safety Awareness Memory Description Short Term Impaired Gross Range of Motion Lower Extremity ROM Assessment Within Functional Limits Strength Lower Extremity Strength Assessment Right Impaired Hip 3+/5 Knee 3+/5 Sensation Assessment Sensation Gross Sensation Right LE Impaired Sensation Description Numbness Comments Sensation Comments c/o numbness on R foot Muscle Tone Muscle Tone WNL Yes M6 PT-IP Treatment Start: 10/09/23 11:53 Freq: NEEDED Status: Active Protocol: Document 10/09/23 10:15 AB (Rec: 10/09/23 12:13 AB [id number]) Physical Therapy Treatment Education Education Provided Precautions,Weight Bearing Status,Post-Op Packet,Safety M7 PT-IP Assessment and Plan Start: 10/09/23 11:53 Freq: NEEDED Status: Active Protocol: Document 10/10/23 10:20 MB (Rec: 10/10/23 10:59 MB [id number]) PT Summary Assessment and Plan Potential Rehabilitation Potential Fair Status of Condition at Evaluation Evolving Summary Impairments Pain,ROM,Strength,Balance, Coordination,Bed Mobility, Transfers,Gait,Activity Tolerance Assessment Summary Crescencio moves better today and requires increased time and cues for activities. He is receptive to functional education about PD and benefits of ongoing acute and post-acute PT to improve movement and amplitude. PT provides education about LSVT BIG in the future and provides pt handout. PT also calls daughter, Roxanna, after PT treatment to discuss PD support and therapy options in the area. Goals Bed Mobility Goal Independent Transfer Goal Standby Assistance,Front Wheeled Walker Gait Goal Minimal Assistance,Front Wheel Walker Gait Distance 75 Other Goals improve bed mobility, transfers, ambulation using FWW ~ 200 ft SBA up/down 7 steps R rail descending SBA Days to Meet Goals 10 Frequency of Treatment Frequency Of Treatment Once a Day Treatment Plan Physical Therapy Treatment Plan Bed Mobility Training,Transfer Training,Gait Training, Therapeutic Exercise,Balance Retraining,Discharge Planning, Hot or Cold Pack,Neuromuscular Re-ed,Coordination Retraining ,Manual Therapy Precautions Other Precautions Continue to monitor light- headedness, BP, HR, falls Recommendations To Nursing Amount of Assist Needed 2 Person Assist Discharge Recommendations PT Discharge Recommendations SNF Rehab Transportation Needs at Discharge Wheelchair/Cabulance
[2023-10-10 11:00] VITALS: BP 95/56; PULSE 83; RESP 16; TEMP 37.2; O2SAT 98
--- NOTE | 2023-10-10 12:39 | PM.PN.1 ---
Subjective Subjective Date Patient Seen: 10/10/23 Interval history: Pt with improvement in right side muscle pain. Notes right arm has been swollen since admission (was laying on right side when found down at home). Less rigidity in UEs since started sinemet. CK trending down and LFTs improving. Exam Vital Signs (past 8 hours): - 10/10/23 07:45 10/10/23 09:30 10/10/23 11:00 Temperature 99.5 F 98.9 F Pulse Rate 64 83 Respiratory Rate 17 16 Blood Pressure 115/71 95/56 L Pulse Oximetry 100 98 Oxygen Delivery Method Room Air Oxygen Flow Rate 0 0 Oxygen Delivery Method Room Air Oxygen Flow Rate 0 Narrative Exam Narrative: Gen: alert, cooperative Lungs: clear CV: regular Ext: + swelling of RUE Neuro: + rigidity Objective Labs 10/10/23 05:10 10/10/23 05:10 Labs: Laboratory Results - last 24 hr 10/10/23 05:10 WBC 5.3 RBC 3.12 L Hgb 9.9 L Hct 29.0 L MCV 92.9 MCH 31.7 MCHC 34.1 RDW 13.1 Plt Count 98 L Neut % (Auto) 62.0 Lymph % (Auto) 28.4 Banner % (Auto) 6.8 Eos % (Auto) 2.1 Baso % (Auto) 0.7 Neut # (Auto) 3300 Lymph # (Auto) 1500 Banner # (Auto) 400 Eos # (Auto) 100 Baso # (Auto) 0 Sodium 136 L Potassium 3.8 Chloride 105 Carbon Dioxide 29 BUN 16 Creatinine 0.88 Estimated GFR > 60 BUN/Creatinine Ratio 18.2 Glucose 93 Calcium 8.4 Total Bilirubin 0.6 AST 332 H ALT 131 H Alkaline Phosphatase 49 Total Creatine Kinase 79680 H Total Protein 5.9 L Albumin 2.8 L Globulin 3.1 Albumin/Globulin Ratio 0.9 L [facility] Social History household members: none Smoking Status: Current some day smoker alcohol intake: current Assessment & Plan Assessment & Plan narrative: 1. Rhabdomyolysis status post fall with significant muscle damage. IV normal saline at 100 mil per hour to continue for now while watching closely for any fluid overload with initial concerns for third spacing of the fluid. Trend renal function and CK. CK downtrending and Cr still normal. 2. Gait instability with generalized weakness. Suspect an element of deconditioning with the progression of Parkinson's disease and other issues. Apparently he had stopped taking his home medications for the past 2 years. PT eval rec SNF. Will need to re-establish with neurologist. 3. Liver dysfunction. AST is 1038 and ALT is 45 on admission. Likely due to rhabdo. Denies any recent acetaminophen use of more than 4 g in 24 hours. Does drink alcohol. Liver US with fatty infiltration. No cholecystitis. Possibly from rhabdo. LFT's downtrending. 4. Gait instability. PT/OT evals. 5. Alcohol use but denies daily use. Initiate vitamin B1 and watch for withdrawal symptoms 6. Parkinson's disease. Restart sinemet 25/100 TID and amantadine 100mg BID, both of which patient was on previously 2 years ago. Rigidity in limbs now improving. 7. Acute SVT now resolved. Patient had HR in 140-160's at rest on 10/08. EKG showed SVT. Given 8mg then 12mg adenosine push and SVT converted to NSR confirmed by repeat EKG. Continue tele. Keep electrolytes normal. 8. Acute anemia -dilutional 9. RUE edema present on admission -obtain venous duplex r/o DVT DVT prophylaxis: SQ heparin CODE STATUS is full. Dispo: SNF tomorrow Quality VTE Deep Vein Thrombosis/Pulmonary Embolism Present on Admission: No
[2023-10-10 19:00] VITALS: BP 107/63; PULSE 76; RESP 16; TEMP 37.3; O2SAT 99
[2023-10-11 00:31] VITALS: BP 116/69; PULSE 75; RESP 16; TEMP 37.2; O2SAT 99
[2023-10-11 04:00] VITALS: BP 123/72; PULSE 70; RESP 16; TEMP 37; O2SAT 100
[2023-10-11 05:19] LABS: Add Manual Diff / Slide Review NO; Basophils Absolute Auto 0 /uL (0-100); Basophils Percent Auto 0.4 % (0-2); Eosinophils Absolute Auto 100 /uL (0-450); Eosinophils Percent Auto 2.7 % (2-4); Hematocrit 30.6 % (41-53); Hemoglobin 10.4 g/dL (13.5-17.5); Lymphocytes Absolute Auto 1300 /uL (1100-4500); Lymphocytes Percent Auto 26.1 % (25-40); Mean Corpuscular HGB Conc 34.1 % (30-36); Mean Corpuscular Volume 93.7 fL (80-100); Monocytes Absolute Auto 300 /uL (0-900); Monocytes Percent Auto 6.1 % (3-14); Neutrophils Absolute Auto 3200 /uL (1500-7000); Neutrophils Percent Auto 64.7 % (50-75); Platelet Count 113 X10^3/uL (150-400); Red Blood Cell Count 3.27 X10^6/uL (4.5-5.9); Red Cell Distribution Width 13.1 % (11.6-14.8); White Blood Cell Count 4.9 X10^3/uL (4.5-11.0)
[2023-10-11 05:29] LABS: Alanine Aminotransferase 172 IU/L (<50); Albumin 3.1 g/dL (3.5-5.0); Albumin Globulin Ratio 0.9 (1.0-2.8); Alkaline Phosphatase 54 U/L (38-126); Aspartate Aminotransferase 236 IU/L (17-59); BUN Creatinine Ratio 17.2 (6-22); Bilirubin Total 0.7 mg/dL (0.2-1.3); Blood Urea Nitrogen 15 mg/dL (9-20); Calcium 8.8 mg/dL (8.4-10.2); Carbon Dioxide 28 mmol/L (22-32); Chloride 103 mmol/L (98-107); Estimated Glomerular Filt Rate > 60 mL/min (>60); Globulin 3.3 g/dL (1.7-4.1); Glucose 100 mg/dL (80-110); HEMOLYSIS < 15 (0-50); Potassium 4.1 mmol/L (3.4-5.1); Sodium 135 mmol/L (137-145); Total Protein 6.4 g/dL (6.3-8.2)
[2023-10-11 05:45] LABS: Creatine Kinase 9615 U/L (55-170)
[2023-10-11 08:00] VITALS: BP 123/74; PULSE 73; RESP 17; TEMP 36.9; O2SAT 100
[2023-10-11] MEDS: SODIUM CHLORIDE 0.9% 1,000 ML 100 ML IV (08:04)
[2023-10-11] MEDS: polyethylene glycoL 3350 17 GM POWD.PACK PO (08:05)
[2023-10-11] MEDS: CARBIDOPA-LEVODOPA 25/100 TABLET 1 EACH PO (08:05)
[2023-10-11] MEDS: THIAMINE 100 MG TABLET PO (08:05)
[2023-10-11] MEDS: ACETAMINOPHEN 325 MG TABLET PO (08:05)
[2023-10-11] MEDS: AMANTADINE 100 MG CAPSULE PO (08:05)
[2023-10-11] MEDS: SENNOSIDES 8.6 MG TABLET 17.2 MG PO (08:05)
[2023-10-11] MEDS: HEPARIN 5,000 UNIT/ML VIAL 5000 UNIT SUBCUT (08:06)
--- NOTE | 2023-10-11 09:48 | PT.IPTN ---
Current Diagnoses Rhabdomyolysis (10/07/23) Physical Therapy Treatment Note M2 PT-IP Current Condition Start: 10/09/23 11:53 Freq: NEEDED Status: Active Protocol: Document 10/09/23 10:15 AB (Rec: 10/09/23 12:13 AB [id number]) Physical Therapy Current Condition Current Condition Evaluation Date 10/09/23 Treatment Diagnosis PD; Rhabdomyolysis; difficulty in walking Onset Date 10/07/23 M3 PT-IP Subjective Start: 10/09/23 11:53 Freq: NEEDED Status: Active Protocol: Document 10/11/23 09:48 AW (Rec: 10/11/23 10:44 AW [id number]) Subjective Physical Therapy Visit Type Type Treatment Note Visit Start Time 09:23 Visit Stop Time 09:48 Total Visit Minutes 25 Physical Therapy Visit Comments Patient Comments Pt is willing to participate with PT, states he remains unsure whether sinemet is helping but he does appreciate that *something* is helping. Therapy Pain Assessment Pain When Pain Assessed During Mobility Pain Present Pain Present Pain Reported Location Right Buttock Scale Used not quantified Pain Management Techniques Distraction,Re-positioning M4 PT-IP Mobility and Gait Start: 10/09/23 11:53 Freq: NEEDED Status: Active Protocol: Document 10/11/23 09:48 AW (Rec: 10/11/23 10:44 AW [id number]) PT-Bed Mobility Assessment Supine to Sit Supine to Sit Minimal Assistance,Head of Bed Elevated,Bedrails Scooting Scooting to Edge of Bed Standby Assistance PT-Transfer Assessment Sit to and From Stand Sit to and from Stand Standby Assistance,Contact Guard Assistance,Minimal Assistance Equipment Transfer Assistive Device Gait Belt,Front Wheeled Walker Orthotic/Prosthetic Devices or Brace: No Transfers Transfer Destination Chair Transfer Technique Stand Step Pivot Transfer Ability Level of Assist Moderate Assistance,1 Person Assistance,Use of Upper Extremities Comments Mobility Comments BP 105/68 HR 86 pre-mobility. PT cues pt for increased amplitude with all movement, beginning with flinging sheet off his legs. Sitting balance at EOB is good. Pt stands from the bed with min A and PT cues big posture with anterior weight shift for improved stability. Pt tends to stand with feet close together and PT cues bigger ELIZABETH. Pt transfers to chair and states that's all I've been able to do lately. PT encourages pt to stand again, cueing ELIZABETH again. This sit to stand rep requires only CGA and cues. Pt shifts weight and picks up feet for marching in place as PT cues amplitude. Pt agrees to ambulate, walking 5 feet forward using FWW with chair follow. He sits with fair eccentric control, good use of arms. Pt stands again with no more than SBA and no cues with improved ELIZABETH. He ambulates another 10 feet with chair follow. Pt returns to sitting and is left up in the chair with call light and tray table in reach. BP 102/60 HR 90 post-mobility. Gait Assessment Gait Gait Assistance Required: Minimum Assistance,Moderate Assistance,1 Person Assist Distance (Feet) 10 Able to Maintain Weight Bearing Status Yes During Gait Assistive Devices Assistive Device Gait Belt,Front Wheeled Walker Gait Deviations General Gait Pattern Decreased Stride Length, Decreased Feet Clearance, Festinating,Flexed Trunk, Narrow Based Gait,Step-to Gait Factors Limiting Gait Function Factors Limiting Gait Function Decreased Activity Tolerance, Decreased Strength, Incoordination,Pain,Poor Balance Comments Gait Comments Pt presents with typical parkinsonian bradykinesia and hypokinesia but responds well to cues for bigger steps. PT-Balance Assessment Sitting Balance and Reactions Static Sitting Balance Ability Good Dynamic Sitting Balance Ability Fair Standing Balance and Reactions Static Standing Balance Ability Fair Dynamic Standing Balance Ability Poor Device Used FWW M5 PT-IP Objective Assessments Start: 10/09/23 11:53 Freq: NEEDED Status: Active Protocol: Document 10/09/23 10:15 AB (Rec: 10/09/23 12:13 AB [id number]) Orientation Orientation/Cognition Level of Alertness Alert Orientation Name Language Function Ability No Deficits Noted Safety Awareness Decreased Safety Awareness Memory Description Short Term Impaired Gross Range of Motion Lower Extremity ROM Assessment Within Functional Limits Strength Lower Extremity Strength Assessment Right Impaired Hip 3+/5 Knee 3+/5 Sensation Assessment Sensation Gross Sensation Right LE Impaired Sensation Description Numbness Comments Sensation Comments c/o numbness on R foot Muscle Tone Muscle Tone WNL Yes M6 PT-IP Treatment Start: 10/09/23 11:53 Freq: NEEDED Status: Active Protocol: Document 10/11/23 09:48 AW (Rec: 10/11/23 10:44 AW [id number]) Physical Therapy Treatment Other Treatments Other Treatment Performed Continued education on primary impairments in PD including hypokinesia and bradykinesia along with effective treatment approaches for recalibrating to improve movement and safety . M7 PT-IP Assessment and Plan Start: 10/09/23 11:53 Freq: NEEDED Status: Active Protocol: Document 10/11/23 09:48 AW (Rec: 10/11/23 10:44 AW [id number]) PT Summary Assessment and Plan Summary Impairments Pain,ROM,Strength,Balance, Coordination,Sensation,Tone, Bed Mobility,Transfers,Gait, Activity Tolerance Progress Towards Goals Progressing Toward Goals,Slow Progress due to Medical Issues Assessment Summary Crescencio continues to improve on Sinemet. PT educated pt and nursing on expected dips in function between doses. Pt was seen today just after first morning dose. Pt responds well to an amplitude based approach. No freezing episodes today but PT did educate pt on strategies for dealing with FOG (stop, stand tall, shift weight, take a big step). PT continues to recommend SNF rehab with the goal of safe discharge home. Goals Bed Mobility Goal Independent Transfer Goal Standby Assistance,Front Wheeled Walker Gait Goal Minimal Assistance,Front Wheel Walker Gait Distance 75 Other Goals improve bed mobility, transfers, ambulation using FWW ~ 200 ft SBA up/down 7 steps R rail descending SBA Days to Meet Goals 10 Frequency of Treatment Frequency Of Treatment Once a Day Treatment Plan Physical Therapy Treatment Plan Bed Mobility Training,Transfer Training,Gait Training, Therapeutic Exercise,Balance Retraining,Discharge Planning, Hot or Cold Pack,Neuromuscular Re-ed,Coordination Retraining ,Manual Therapy Precautions Other Precautions Continue to monitor light- headedness, BP, HR, falls Recommendations To Nursing Amount of Assist Needed 1 Person Assist,2 Person Assist Discharge Recommendations PT Discharge Recommendations SNF Rehab Transportation Needs at Discharge Wheelchair/Cabulance
--- NOTE | 2023-10-11 10:04 | P.DS_ITS ---
History of Present Illness History of Present Illness Chief complaint: fall, unable to move on his own Narrative: 54 years old -[place] male with a past medical history of Parkinson's disease and currently not on medications with no physician follow-up in the past 2 years was brought to the emergency room for progressive weakness. Apparently he lives alone at home and had a fall in the bedroom laying on the ground for approximately 14 hours since he could not call for help. Eventually his daughter went over to his house after he did not answer the phone and found him lying on the ground. Patient denies trauma to the head or loss of consciousness. He had significant weakness in both upper and lower extremity with the rigidity but able to lift the hands in a very slow motion. He was advised walker in the past but does not use it. He does smoke and consume alcohol/marijuana intermittently. In the emergency room, follow-up CT scan of the brain shows no acute process. Labs showed a BUN of 35.0. AST was 1038 and a lipase was 21. Total CPK was 56,100 globulin was 4.6 urinalysis is negative for WBCs and leukocyte esterase. Patient was initiated on IV fluids and admitted for further evaluation Discharge Providers Provider Date of admission: 10/07/23 23:05 Discharge Date: 10/11/23 Primary care physician: Chu Cortes MD Consults: 10/08/23 08:37 Consult to Occupational Therapy Evaluate & Treat Comment: Physician Instructions: Evaluate and treat Consult to Physical Therapy Evaluate & Treat Comment: Physician Instructions: Evaluate and Treat Discharge provider: Jose Raul Choe MD Summary Hospital Course Discharge Diagnosis: 1. Rhabdomyolysis status post fall with significant muscle damage. IV normal saline at 100 mil per hour. CK improved and Cr remained normal. 2. Gait instability with generalized weakness. Suspect an element of deconditioning with the progression of Parkinson's disease and other issues. Apparently he had stopped taking his home medications for the past 2 years. PT eval rec SNF. Will need to re-establish with neurologist. Dr. Deleon. 3. Liver dysfunction. AST is 1038 and ALT is 45 on admission. Likely due to rhabdo. Denies any recent acetaminophen use of more than 4 g in 24 hours. Does drink alcohol. Liver US with fatty infiltration. No cholecystitis. Possibly from rhabdo. LFT's downtrending. 4. Gait instability. PT/OT evals. 5. Alcohol use but denies daily use. Initiate vitamin B1 and watch for withdrawal symptoms 6. Parkinson's disease. Restart sinemet 25/100 TID and amantadine 100mg BID, both of which patient was on previously 2 years ago. Rigidity in limbs now improving. 7. Acute SVT now resolved. Patient had HR in 140-160's at rest on 10/08. EKG showed SVT. Given 8mg then 12mg adenosine push and SVT converted to NSR confirmed by repeat EKG. Continue tele. Keep electrolytes normal. 8. Acute anemia -dilutional 9. RUE edema present on admission -obtained venous duplex r/o DVT, negative. Hospital Course: He was admitted with rhabdomyolysis after a fall. He was treated with saline and has CK was trended and did improve. He was found to have significant gait instability and weakness as well as his Parkinson's disease. Recommendations from PT and OT were for SNF rehab. The patient was agreeable to this. He did have 1 episode on the of SVT which was resolved. This was treated with adenosine. The patient was restarted on his Sinemet and amantadine for his Parkinson's disease given his increased rigidity and limbs as well as gait instability. On October 11 he was felt to be stable for discharge. Status at Discharge Cognitive/behavioral status at discharge: oriented Functional status at discharge: uses cane/walker Overall status at discharge: patient is progressing back to baseline Exam Vital Signs (past 8 hours): - 10/11/23 04:00 10/11/23 08:00 Temperature 98.6 F 98.5 F Pulse Rate 70 73 Respiratory Rate 16 17 Blood Pressure 123/72 123/74 Pulse Oximetry 100 100 Oxygen Delivery Method Room Air Oxygen Flow Rate 0 Narrative Exam Narrative: NAD, oriented with fluent speech. Lungs are clear with normal effort. Heart is regular, no murmur. Abdomen is soft, and flat. Extremities are free of edema. Objective Imaging Venous US: Radiologist's impression: No findings of upper extremity deep venous thrombosis. Echo: Radiologist's impression: Normal sinus rhythm. Normal LV size, wall thickness, wall motion and LV systolic function. EF is 50-55%. Borderline LA enlargement; otherwise normal chamber sizes. No valve abnormalities. No prior study available for comparison. US - abdomen: Radiologist's impression: 1. Mild hepatic steatosis, no discrete hepatic lesion. 2. Cholelithiasis without sonographic evidence of acute cholecystitis. No biliary ductal dilatation. 3. Right renal cyst as above. No hydronephrosis. CT scan - head: Radiologist's impression: No acute intracranial pathology. Labs 10/11/23 04:40 10/11/23 04:40 Labs: Laboratory Results - last 24 hr 10/11/23 04:40 WBC 4.9 RBC 3.27 L Hgb 10.4 L Hct 30.6 L MCV 93.7 MCH 32.0 MCHC 34.1 RDW 13.1 Plt Count 113 L Neut % (Auto) 64.7 Lymph % (Auto) 26.1 Sharkey % (Auto) 6.1 Eos % (Auto) 2.7 Baso % (Auto) 0.4 Neut # (Auto) 3200 Lymph # (Auto) 1300 Sharkey # (Auto) 300 Eos # (Auto) 100 Baso # (Auto) 0 Sodium 135 L Potassium 4.1 Chloride 103 Carbon Dioxide 28 BUN 15 Creatinine 0.87 Estimated GFR > 60 BUN/Creatinine Ratio 17.2 Glucose 100 Calcium 8.8 Total Bilirubin 0.7 AST 236 H ALT 172 H Alkaline Phosphatase 54 Total Creatine Kinase 9615 H Total Protein 6.4 Albumin 3.1 L Globulin 3.3 Albumin/Globulin Ratio 0.9 L [facility] Social History household members: none Smoking Status: Current some day smoker alcohol intake: current Discharge Assessment & Plan Assessment and Plan Assessment: 1. Rhabdomyolysis, present on admission and improved. 2. Gait instability, present on admission and active. 3. Parkinson's disease, present on admission and active. 4. Liver dysfunction with transaminitis, present on admission and improving. 5. Alcohol use, present on admission and active. 6. Anemia, likely dilutional. Stable. 7. Right arm edema with negative duplex, improved. 8. PSVT, not present on admission, and resolved. Plan of Treatment: Discharged to [facility] half-way Facility in [place] for rehabilitation. Discharge Plan Discharge Plan Patient Disposition: SNF Transfer to: [facility] Provider Discharge Comment: Stable for discharge to SNF. Discharge orders & Medications Prescriptions: New amantadine HCl 100 mg Capsule 100 mg PO BID Qty: 60 1RF carbidopa-levodopa 25-100 mg Tablet 1 tab PO 0800,1200,1700 Qty: 90 1RF thiamine mononitrate (vit B1) 100 mg Tablet 100 mg PO DAILY Qty: 30 1RF Continued polyethylene glycol 3350 [Miralax] 17 gram Powder In Packet 1 dose PO PRN PRN (Reason: Constipation) famotidine [Pepcid] 20 mg Tablet 1 tab PO PRN PRN (Reason: Heartburn) ondansetron 4 mg tablet,disintegrating 4 mg PO TID-QID PRN (Reason: nausea and vomiting) Qty: 10 0RF tramadol 50 mg tablet 50 mg PO Q6H PRN (Reason: Pain, Moderate) Qty: 20 0RF Patient Comments: take 1 tablet by mouth every 6 hours if needed for pain Discontinued sulfamethoxazole-trimethoprim 800-160 mg tablet 1 tab PO BID Patient Comments: take 1 tablet by mouth twice a day hydrocodone-acetaminophen 5-325 mg tablet 1 tab PO Q4-6H PRN (Reason: pain) Qty: 10 0RF ketorolac 10 mg tablet 10 mg PO Q6H PRN (Reason: pain) Qty: 14 0RF Medication counseling provided by Pharmacist: No Follow up/Referrals: Chu Cortes MD [Primary Care Provider] - Discharge Health Status Multidrug resistant organism: No MDRO Diet/Activity/Treatments Diet: Diet as Tolerated Food texture: Regular Activity: As tolerated per PT and OT Special Rehabilitation Services Reason for rehabilitation: Recovery r/t decondition Rehab type: Physical therapy and Occupational therapy Visit Report/Discharge Packet Stand Alone Forms: Patient Portal/API Discharge Data Primary Care Provider: Chu Cortes Quality VTE Deep Vein Thrombosis/Pulmonary Embolism Present on Admission: No
--- NOTE | 2023-10-11 10:57 | OT.IP.EVAL ---
Current Diagnoses Rhabdomyolysis (10/07/23) Occupational Therapy Inpatient Evaluation/Re-Eval M1 PT/OT-IP Prior Functional Status Start: 10/09/23 11:53 Freq: NEEDED Status: Active Protocol: Document 10/11/23 11:00 CGR (Rec: 10/11/23 11:35 CGR [id number]) Medical Review Prior Functional Status Medical History Reviewed Yes Communication able to make needs known Mobility and Gait pt stated that he was modified independent with all mobilities and ambulation without AD; has h/o falls and had already had 2 falls this year Activities of Daily Living and IADL's Pt states that he was IND in all ADLs but was having increased difficulty. Pt states that he doesn't shower and instead baths at the sink. He states that if he needs to be somewhere in the morning then he gets dressed the night before. He was going to the grocery store once a month for all necessary items and uses the air frier for all of his cooking. He does his own laundry but with difficulty. Social History Household Members none Living Arrangements Apartment/Condo Number of Floors (Floors) One Floor Number of Stairs To Enter/Railing? 7 steps R rail descending to go down to his apartment Home Environment Standard Height Toilet,Tub/ Shower Home Equipment Shower Seat without Backrest Employment Status Retired Additional Social History Comment pt stated that his children will bring food for him, pt is retired [employer]. M2 OT-IP Current Condition Start: 10/11/23 11:00 Freq: Status: Active Protocol: Document 10/11/23 11:00 CGR (Rec: 10/11/23 11:35 R [id number]) Occupational Therapy Current Condition Current Condition Evaluation Date 10/11/23 Treatment Diagnosis GLF, untreated parkinsons Diagnosis Onset Date 10/07/23 M3 OT- IP Subjective and Pain Start: 10/11/23 11:00 Freq: Status: Active Protocol: Document 10/11/23 11:00 CGR (Rec: 10/11/23 11:35 R [id number]) OT- Subjective Occupational Therapy Visit Type Type Initial Evaluation Visit Start Time 10:22 Visit Stop Time 10:57 Total Visit Minutes 35 Notes Pt requesting to get to the toilet for BM. OT Pain Assessment Pain When Pain Assessed At Rest Pain Present Pain Present Denied Pain M4 OT- IP ADL's Start: 10/11/23 11:00 Freq: Status: Active Protocol: Document 10/11/23 11:00 CGR (Rec: 10/11/23 11:35 CGR [id number]) OT [id number] Comments OT Self-Feeding Comments not meal time OT ADL-Grooming General Evaluation Grooming Ability Standby Assistance Areas Needing Assistance Retrieving/Set-up of Grooming Items,Face Washing Comments OT Grooming Comments pt washed face with cloth provided while he was sitting in chair. OT ADL-Oral Care General Eval Oral Care Ability Standby Assistance Areas of Assistance Brushing Teeth,Retrieving/Set- Up of Items Comments Oral Care Comments seated in chair for brushing teeth. OT ADL-Dressing General Eval Lower Body Dressing Ability Maximum Assistance Areas Needing Assistance Underpants/Brief Comments OT Dressing Comments Pt needed max a for donning clean brief. OT ADL-Toileting General Evaluation Toileting Ability Maximum Assistance Areas Needing Assistance Manage Clothing,Perform Perineal Hygiene Comments OT Toileting Comments Pt needed assist with pulling down dirty brief and pulling up clean brief as well as back pericare. OT ADL-Bathing Comments OT Bathing Comments not performed M5 OT- IP IADL's Start: 10/11/23 11:00 Freq: Status: Active Protocol: Document 10/11/23 11:00 CGR (Rec: 10/11/23 11:35 CGR [id number]) OT-Instrumental Activities of Daily Living Deficits IADL Deficits Identified No Deficits Home Safety Awareness Awareness of Need for Assistance at Home Good Awareness Ability to Problem Solve Emergency Able to Problem Solve Situations Medication Management Medication Management No Deficits Identified Money Management Money Management No Deficits Identified Meal Preparation Meal Preparation Comments Pt states he does his own cooking. Sales Planning Coordinator Sales Planning Coordinator Comments Pt states he does his own chores, it is likely that this is difficult for him Driving Driving Comments Pt does not drive at baseline. M6 OT- IP Functional Cognition Start: 10/11/23 11:00 Freq: Status: Active Protocol: Document 10/11/23 11:00 CGR (Rec: 10/11/23 11:35 CGR [id number]) Cognitive Factors Limiting Selfcare Function Cognitive Ability Level of Alertness Alert Patient Orientation Name,Age,Birthday,Month,Date, Year,Day of Week,Place, Situation Attention Span Ability Capable of Focused Attention, Capable of Sustained Attention Ability to Follow Commands Able to Follow Multi-Step Commands OT- Vision and Hearing OT- Hearing Assessment OT- Hearing Assessment WFL OT- Vision Assessment Visual Acuity WFL Visual Attentiveness WFL Occular Pursuits WFL Visual Convergence WFL M7 OT- IP Mobility and Balance Start: 10/11/23 11:00 Freq: Status: Active Protocol: Document 10/11/23 11:00 CGR (Rec: 10/11/23 11:35 CGR [id number]) OT-Transfer Assessment Sit to and From Stand Sit to and from Stand Contact Guard Assistance Transfers Transfer Ability Contact Guard Assistance Technique Transfer Destination Chair,Toilet Transfer Technique Stand Step Pivot Devices Transfer Assistive Devices Gait Belt,Front Wheeled Walker Comments Mobility Comments Mobility from the chair to the toielt. Sit to stand off the toilet x2 for denise and charla breen. OT- Gait Assessment Gait Gait Assistance Required: Contact Guard Assist Assistive Devices Assistive Device Gait Belt,Front Wheeled Walker OT- Balance Assessment Sitting Balance and Reactions Static Sitting Balance Ability Good Dynamic Sitting Balance Ability Good M8 OT- IP Objective Assessments Start: 10/11/23 11:00 Freq: Status: Active Protocol: Document 10/11/23 11:00 CGR (Rec: 10/11/23 11:35 CGR [id number]) OT Gross Range of Motion Upper Extremity Range of Motion Assessment Within Functional Limits OT Strength Upper Extremity Strength Assessment Within Functional Limits Comments Strength Comments Pt is especially strong. 5/5 throughout OT- Coordination Assessment Upper Extremity Finger to Nose Test Within Functional Limits Finger Tapping Test Within Functional Limits OT-Muscle Tone Assessment Muscle Tone WNL Yes OT Sensation Assessment Edema Edema Absent M9 OT- IP Assessment and Plan Start: 10/11/23 11:00 Freq: Status: Active Protocol: Document 10/11/23 11:00 CGR (Rec: 10/11/23 11:35 CGR [id number]) OT Summary Assessment and Plan Potential Rehabilitation Potential Good Analytic Complexity at Evaluation Moderate Summary OT Impairments Balance,Functional Mobility, Grooming,Dressing,Toileting, Bathing,Toilet Transfers, Shower Transfers,Activity Tolerance Progress Towards Goals Slow Progress due to Medical Issues,Slow Progress due to Activity Tolerance Assessment Summary Pt presents as a moderate complexity evaluation s/p admit for GLF. Pt has a dx of parkinsons and previously was not taking medications. In todays session, pt demonstrates excellent strength but needs CGA for mobility. He needed assist with back pericare and donning and doffing brief. Pt will continue to benefit from OT services. Recommend d/c to SNF . Goals Self-Feeding Goal Independent Grooming Goal Independent Dressing Goal Independent Toileting Goal Independent Bathing Goal Independent Toilet Transfer Goal Independent Shower Transfer Goal Independent Days to Meet Goals 15 Frequency of Treatment Frequency Of Treatment Once a Day Treatment Plan OT Treatment Plan ADL Training,Functional Mobility,Patient/Family Education,Discharge Planning Other Treatment Recommendations and Next shower, LB dressing practice Treatment Focus with DME as needed. Discharge Recommendations OT Discharge Recommendations SNF Rehab Transportation Needs at Discharge Private Vehicle
--- NOTE | 2023-10-11 11:30 | CM.DPNOTE ---
DCP Note INFANTRY ASSAULTMAN reviewed EMR. Per provider, medically stable to dc to SNF today. Per Alem at [facility], can take around 12-1230 today. Alem wanted pt to agree to not smoke at facility. INFANTRY ASSAULTMAN updated RN/Provider/NEUROLOGY STROKE PHYSICIAN INFANTRY ASSAULTMAN entered room and introduced self and role. Pt sitting up in bed. Pt in agreement with dcp. Pt concerned about getting lunch. Pt asked if this INFANTRY ASSAULTMAN could call dtr to update her on dcp. Pt reports he is a non smoker and agrees to not smoke at [facility]. INFANTRY ASSAULTMAN spoke with dtr Roxanna ([phone]) about dcp. Dtr in agreement. Dtr reports they are working on getting pt Medicare pt B in order to get pt For Life coverage. INFANTRY ASSAULTMAN called dietary to inquire if pt could get lunch early due to dc time. Dietary in agreement. RAPHAEL Morales and this INFANTRY ASSAULTMAN sent Alem via email signed med list, PASSR, dc summary, and order. RAPHAEL Morales provided RN with RN report number and placed signed med list and PASSR in chart. Plan: pt to dc today to [facility] today around 12pm. CM team will continue to follow closely. SHAINA Peter
--- NOTE | 2023-10-11 11:48 | PC.NURSE ---
Day shift: Called report to MAXIMINO Markham at [facility]. PIV and tele removed prior to discharge. Packet completed. Gave report to MAXIMINO Simpson who will assume care of patient until discharge - cabulance picking up between 12 and 12:30pm.
== END 2023-10-11 12:19 | DRG 558 ==
LOC: ED 22:22 → AC 23:06
PROVIDERS: Student in an Organized Health Care Education/Training Program; Admitting Provider Internal Medicine; Emergency Provider Emergency Medicine; PCP Psychiatry & Neurology Neurology; Referring Provider Emergency Medicine; Visit Provider Internal Medicine
DX: M62.82 Rhabdomyolysis (principal); I47.10 Supraventricular tachycardia, unspecified; F17.200 Nicotine dependence, unspecified, uncomplicated; R26.89 Other abnormalities of gait and mobility; F10.90 Alcohol use, unspecified, uncomplicated; G20.A1 Parkinson's disease without dyskinesia, without mention of fluctuations; K76.89 Other specified diseases of liver; R60.0 Localized edema; Y90.0 Blood alcohol level of less than 20 mg/100 ml
CPT/HCPCS: 36415; 70450; 76705; 80053; 80320; 82550; 83690; 83735; 84100; 84443; 85025; 85610; 93005; 93010; 93306; 93971; 97162; 97166; 97530; 97535; 99284; J0153; J1644